=== PATIENT | female | born 1985 | race Caucasian/White ===

== ENCOUNTER 2018-03-23 12:37 | Emergency (ER) | payer SELFPAY ==
[2018-03-23 12:44] VITALS: BP 135/90; PULSE 64; RESP 18; TEMP 36.7; O2SAT 100
--- NOTE | 2018-03-23 12:44 | ED.GENADULT ---
HPI - General Adult <Janneth Bradshaw PA-C - Last Filed: 03/23/18 22:08> General Chief complaint: Medical Clearance Stated complaint: PAIN IN RIGHT WRIST Time Seen by Provider: 03/23/18 12:44 Source: patient Mode of arrival: ambulatory Limitations: no limitations History of Present Illness HPI narrative: This 32-year-old right-handed female comes in requesting a work release note. She states that 8 days ago at work, she was holding a 10 ft piece of scaffolding, which she carries regularly, in her right hand and over her shoulder. She states that the wind blew the plank up, twisting her wrist a little bit and felt somewhat sore after that. She states this has not been bothersome enough to keep her from working, but she did get a wrist splint which she has been wearing that helps with support and comfort. 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 She denies any weakness or paresthesia in the wrist, hand or fingers. She states this has not gotten worse since the initial incident, and not severe enough that she has felt like she needed to take any [id number] pain medication for it. She states that this seems quite mild enough to have been something she could have done at home, so she did not report the injury at the time. She wants to continue working Related Data Previous Rx's Medication Instructions Recorded cyclobenzaprine 10 mg PO Q8HP PRN #20 tab 05/16/17 prednisone 40 mg PO QDAY #6 tab 05/16/17 Allergies Allergy/AdvReac Type Severity Reaction Status Date / Time No Known Allergies Allergy Uncoded 11/03/17 12:31 Review of Systems <Janneth Bradshaw PA-C - Last Filed: 03/23/18 22:08> Review of Systems All systems reviewed & are unremarkable except as noted in HPI and below PFSH <Janneth Bradshaw PA-C - Last Filed: 03/23/18 22:08> Comment: Rare EtOH, no street drugs Exam <Janneth Bradshaw PA-C - Last Filed: 03/23/18 22:08> Narrative Exam Narrative: GENERAL APPEARANCE: Patient sitting comfortably, in no distress. LUNGS: Clear to auscultation bilaterally. HEART: Rate and rhythm regular without murmur, normal S1 and S2, no S3 or S4. MUSCULOSKELETAL: Right upper extremity there is no effusion. Mild tenderness at the right lateral wrist border just proximal to the snuffbox. No tenderness elsewhere over the elbow, forearm, wrist, hand or fingers. She has full range of motion at the elbow, wrist and fingers. Director Of Transportation strength 5/5 NEUROVASCULAR: Right hand is warm and pink with brisk cap refill of the fingers. Sensation is grossly intact Initial Vital Signs Initial Vital Signs: Vital Signs Temperature 98.0 F 03/23/18 12:44 Pulse Rate 64 03/23/18 12:44 Respiratory Rate 18 03/23/18 12:44 Blood Pressure 135/90 H 03/23/18 12:44 Pulse Oximetry 100 03/23/18 12:44 <Freida Vallejo DO - Last Filed: 03/24/18 08:09> Initial Vital Signs Initial Vital Signs: Vital Signs Temperature 98.0 F 03/23/18 12:44 Pulse Rate 64 03/23/18 12:44 Respiratory Rate 18 03/23/18 12:44 Blood Pressure 135/90 H 03/23/18 12:44 Pulse Oximetry 100 03/23/18 12:44 Course <Janneth Bradshaw PA-C - Last Filed: 03/23/18 22:08> Vital Signs - 8 hr 03/23/18 12:44 Temperature 98.0 F Pulse Rate 64 Respiratory Rate 18 Blood Pressure 135/90 H Pulse Oximetry 100 <Freida Vallejo DO - Last Filed: 03/24/18 08:09> Vital Signs - 8 hr 03/23/18 12:44 Temperature 98.0 F Pulse Rate 64 Respiratory Rate 18 Blood Pressure 135/90 H Pulse Oximetry 100 Discharge Plan Departure Patient Disposition: Home Clinical Impression: Muscle strain of right wrist Discharge Date/Time: 03/23/18 13:31 Interventions: ED Discharge Assessment Last Done: 03/23/18 13:30 Instructions: DI for Wrist Sprain Activity Restrictions/Additional Instructions: Please return if you have any acutely worsening symptoms. Please wear the wrist splint when you are at work. You may need this for a month to 6 weeks. Please use [id number] ibuprofen or Aleve as needed for pain. You can resume your usual work duties since you have been doing them without problems, but please follow-up with your PCP in the next week or 2 if not getting better to determine whether further testing or treatment is needed. Prescriptions: No Action cyclobenzaprine 10 MG tablet 10 mg PO Q8HP PRNQty: 20 RF: 0 prednisone 20 MG tablet 40 mg PO QDAY Qty: 6 RF: 0 Referrals: Burak Lama MD [Physician] - <Freida Vallejo DO - Last Filed: 03/24/18 08:09> Cosign ED Attending Lionelature Attestation: I was immediately available in the department for consultation. Documentation has been reviewed. I agree with assessment and plan.
== END 2018-03-23 13:31 | disposition home or self-care (01) ==
PROVIDERS: Emergency Provider Internal Medicine
DX: S66.911A Strain of unspecified muscle, fascia and tendon at wrist and hand level, right hand, initial encounter (principal); T73.3XXA Exhaustion due to excessive exertion, initial encounter; Y99.0 Civilian activity done for income or pay
CPT/HCPCS: 99282

== ENCOUNTER 2019-05-05 08:45 | Emergency (ER) | payer OTHER, SELFPAY ==
--- NOTE | 2019-05-05 08:47 | ED_ITS ---
HPI - Back Pain/Injury General Chief Complaint: Back Pain/Injury Stated Complaint: lower back pain Time Seen by Provider: 05/05/19 08:47 Source: patient and family Mode of arrival: Ambulatory Limitations: no limitations History of Present Illness HPI Narrative: 33-year-old female daily smoker, nondrinker with history of back pain presents with her significant other and a chief complaint of chronic lower back pain. It has been present for many months but the today seems to be radiating down her left leg. Her pain is worse with motion and improves with rest. She admits to some occasional tingling in her toe but denies any weakness. She has no saddle anesthesia. She has no trouble controlling bowel or bladder. She denies any fever chills, and uses no IV drugs and takes no blood thinners. MD Complaint: back pain Onset (ago): month(s) Duration: constant Similar Symptoms Previously: Yes Location: lumbar spine and left lower back Severity: moderate Quality: burning and sharp Radiation: left leg Relieving factors: immobilization Exacerbating factors: movement Associated symptoms: numbness Related Data Previous Rx's Medication Instructions Recorded cyclobenzaprine 10 mg PO Q8HP PRN #20 tab 05/16/17 prednisone 40 mg PO QDAY #6 tab 05/16/17 diazepam [Valium] 5 mg PO BID-QID PRN #10 tab 05/05/19 hydrocodone-acetaminophen 1 tab PO Q4-6H PRN #10 tab 05/05/19 ketorolac 10 mg PO Q6H PRN #14 tab 05/05/19 prednisone 20 mg PO DAILY #5 tab 05/05/19 Allergies Allergy/AdvReac Type Severity Reaction Status Date / Time No Known Allergies Allergy Uncoded 11/03/17 12:31 Review of Systems Constitutional Constitutional: Denies chills, Denies fatigue, Denies fever(s), Denies frequent falls, Denies lethargy and Denies weakness Eyes Eyes: Denies change in vision, Denies eye discharge, Denies irritation and Denies loss of vision ENT Ears, Nose, Mouth, and Throat: Denies change in voice, Denies dizziness, Denies neck pain, Denies sore throat and Denies throat swelling Cardiovascular Cardiovascular: Denies chest pain, Denies irregular heart rhythm, Denies lightheadedness, Denies palpitations, Denies dyspnea, Denies dyspnea on exertion and Denies orthopnea Respiratory Respiratory: Denies cough, Denies dyspnea, Denies dyspnea on exertion and Denies wheezing Gastrointestinal Gastrointestinal: Denies abdominal pain, Denies change in bowel habits, Denies diarrhea, Denies nausea and Denies vomiting Genitourinary Genitourinary: Denies hematuria, Denies flank pain, Denies urinary incontinence and Denies urinary urgency Musculoskeletal Musculoskeletal: Reports back pain, Denies muscle weakness, Denies neck pain, Denies numbness and Denies tingling Integumentary/Breasts Skin/Breast: Denies pruritus, Denies erythema, Denies rash and Denies wounds Neurologic Neurologic: Denies behavioral changes, Denies confusion, Denies dizziness, Denies frequent falls, Denies loss of vision, Denies numbness, Denies tingling and Denies weakness Psychiatric Psychiatric: Denies anxiety, Denies behavioral changes, Denies confusion, Denies depression, Denies homicidal ideation and Denies suicidal ideation Endocrine Endocrine: Denies fatigue, Denies flushing and Denies palpitations Hematologic/Lymphatic Hematologic/Lymphatic: Denies easy bruising Allergic/Immunologic Allergic/Immunologic: Denies urticaria, Denies throat swelling and Denies wheezing Exam Narrative Exam Narrative: GENERAL: [33] year old patient appears stated age. Well- nourished, well-developed patient, in mild distress. HEAD: Atraumatic. Normocephalic. EYES: Pupils equal round and reactive. Extraocular motions intact. No scleral icterus. No injection or drainage. ENT: Nose without bleeding, purulent drainage. Throat without erythema, tonsillar hypertrophy or exudate. Airway patent. NECK: Trachea midline. Non tender CARDIOVASCULAR: Regular rate and rhythm without murmurs, gallops, or rubs. RESPIRATORY: Clear to auscultation. Breath sounds equal bilaterally. No wheezes, rales, or rhonchi. GASTROINTESTINAL: Abdomen soft, non-tender, nondistended. EXTREMITIES: No edema or joint tenderness. BACK: ager tender but free of any obvious external abnormalities. Patient exam notes decreased range of motion and muscle spasm, but no CVA tenderness, or vertebral point tenderness. There are no symptoms of cauda equina such as saddle anesthesia, and decreased reflexes, decreased sensation or strength. NEURO: AOx3. SKIN: No rash or erythema of visible areas Initial Vital Signs Initial Vital Signs: Vital Signs Temperature 98.2 F 10/11/19 08:55 Pulse Rate 77 05/05/19 08:55 Respiratory Rate 18 05/05/19 08:55 Blood Pressure 121/69 05/05/19 08:55 Pulse Oximetry 100 05/05/19 08:55 Course Orders Ordered: Discontinued Medications Diazepam (Valium) 5 mg PO NOW ONE Stop: 05/05/19 09:34 Last Admin: 05/05/19 10:18 Dose: 5 mg Documented by: GUY Ketorolac Tromethamine (Toradol) 60 mg IM NOW ONE Stop: 05/05/19 09:34 Last Admin: 05/05/19 10:17 Dose: 60 mg Documented by: GUY Discharge Plan Departure Patient Disposition: Home Clinical Impression: Chronic back pain Qualifiers: Back pain location: low back pain Back pain laterality: bilateral Sciatica presence: with sciatica Sciatica laterality: sciatica of left side Qualified Code(s): M54.42 - Lumbago with sciatica, left side Discharge Date/Time: 05/05/19 10:57 Instructions: DI for Back Pain With Sciatica Activity Restrictions/Additional Instructions: You have been prescribed narcotic medications. While on these medications you cannot drive or operate heavy machinery. Additionally you cannot sign legal documents or perform any duties such as this. Many people get constipated on narcotic medications so it would be advisable to discuss stool softeners with the pharmacist when you warp picker your prescription. Please understand that we cannot provide further refills of narcotics or controlled substances through the ED and your pain management will need to be through your Primary Care Provider Prescriptions: New hydrocodone-acetaminophen 5-325 mg tablet 1 tab PO Q4-6H PRN (Reason: pain) Qty: 10 RF: 0 prednisone 20 mg tablet 20 mg PO DAILY Qty: 5 RF: 0 ketorolac 10 mg tablet 10 mg PO Q6H PRN (Reason: pain) Qty: 14 RF: 0 diazepam [Valium] 5 mg tablet 5 mg PO BID-QID PRN (Reason: muscle spasm) Qty: 10 RF: 0 No Action cyclobenzaprine 10 MG tablet 10 mg PO Q8HP PRNQty: 20 RF: 0 prednisone 20 MG tablet 40 mg PO QDAY Qty: 6 RF: 0 Referrals: [facility] [Outside]
[2019-05-05 08:55] VITALS: BP 121/69; PULSE 77; RESP 18; TEMP 36.8; O2SAT 100; BMI 28.1
[2019-05-05] MEDS: KETOROLAC 60 MG/2 ML VIAL IM (10:17)
[2019-05-05] MEDS: diazePAM 5 MG TABLET PO (10:18)
[2019-05-05 10:57] VITALS: BP 110/72; PULSE 72; RESP 14
== END 2019-05-05 10:57 | disposition home or self-care (01) ==
PROVIDERS: Emergency Provider Emergency Medicine
DX: M54.42 Lumbago with sciatica, left side (principal)
CPT/HCPCS: 96372; 99282; 99283; J1885

== ENCOUNTER → 2019-05-09 17:00 | Outpatient (CLI) | payer OTHER, SELFPAY ==
--- NOTE | 2019-05-09 | DI.RAD.S_ITS ---
PROCEDURE: XR LUMBAR SPINE 2-3V INDICATIONS: Possible Transitional Segment TECHNIQUE: 3 views of the lumbar spine were acquired. COMPARISON: None. FINDINGS: Bones: 5 [id number] vertebrae are present. There is normal bony alignment. No vertebral body compression fractures. No suspicious bony lesions. There is minimal degenerative disc disease above the L5-S1 level where mild to moderate degenerative disc height reduction and mild facet osteoarthritis could be seen without subluxation. Soft tissues: Overlying bowel gas pattern is normal. No suspicious soft tissue calcifications. IMPRESSION: Degenerative L5-S1 disc disease is mild to moderate and facet osteoarthritis is mild but no compression fractures seen and by this examination otherwise the L5-S1 morphology and articulation appears normal. Dictated by: Amrit Naylor M.D. on 05/09/2019 at 17:24 Approved by: Amrit Naylor M.D. on 05/09/2019 at 17:25
== END ==
PROVIDERS: Visit Provider Chiropractor
DX: M51.37 Other intervertebral disc degeneration, lumbosacral region (principal); M47.817 Spondylosis without myelopathy or radiculopathy, lumbosacral region
CPT/HCPCS: 72100; 72110

== ENCOUNTER 2020-02-18 00:24 | Emergency (ER) | payer OTHER, SELFPAY ==
[2020-02-18 00:25] VITALS: BP 169/98; PULSE 106; RESP 24; TEMP 36.6; O2SAT 99; BMI 32.1
--- NOTE | 2020-02-18 00:42 | ED.WOUNDLAC ---
HPI - Wound/Laceration General Chief Complaint: Wound/Laceration Stated Complaint: cut on right knee Time Seen by Provider: 02/18/20 00:37 Source: patient and family Mode of arrival: Wheelchair Limitations: no limitations History of Present Illness HPI narrative: 34-year-old female here for evaluation of a laceration to her right knee. Patient states that prior to arrival she tripped and fell at home landing on her right knee in cutting it on a piece of metal. Has been able to walk since then. Covered with a bandage prior to arrival. Does not know when her last tetanus shot was. Related Data Previous Rx's Medication Instructions Recorded cyclobenzaprine 10 mg PO Q8HP PRN #20 tab 05/16/17 prednisone 40 mg PO QDAY #6 tab 05/16/17 diazepam [Valium] 5 mg PO BID-QID PRN #10 tab 05/05/19 hydrocodone-acetaminophen 1 tab PO Q4-6H PRN #10 tab 05/05/19 ketorolac 10 mg PO Q6H PRN #14 tab 05/05/19 prednisone 20 mg PO DAILY #5 tab 05/05/19 cephalexin [Keflex] 500 mg PO QID 5 Days #20 cap 02/18/20 Allergies Allergy/AdvReac Type Severity Reaction Status Date / Time No Known Allergies Allergy Uncoded 02/18/20 00:32 Review of Systems Musculoskeletal Comments: Pain into the right knee Integumentary/Breasts Comments: Cut right knee Neurologic Comments: Tingling to the right toes Hematologic/Lymphatic Hematologic/Lymphatic: Denies easy bleeding and Denies easy bruising Allergic/Immunologic Allergic/Immunologic: Denies urticaria Patient History Medical History Hx of sciatica (Resolved) Surgical History History of (Resolved) Social History Smoking Status: Current every day smoker Smoking Status: Current every day smoker alcohol intake frequency: 0-2 drinks per day Alcohol type: beer Substance Use Type: does not use Exam Initial Vital Signs Initial Vital Signs: Vital Signs Temperature 97.8 F 02/18/20 00:25 Pulse Rate 106 H 02/18/20 00:25 Respiratory Rate 24 02/18/20 00:25 Blood Pressure 169/98 H 02/18/20 00:25 Pulse Oximetry 99 02/18/20 00:25 Const General: cooperative and comfortable Skin Other: Patient with a 6 cm incision just proximal to the patella over the anterior portion of the right knee. Has a 1.5 cm smaller incision directly over the patella anterior right knee. No active bleeding. Neuro Sensory Exam: no sensory deficits noted Extrem Other: Patient is able to do a straight leg raise. Can bend her knee however does cause discomfort Procedures Laceration Repair Laceration 1: Site: lower extremity Side (If applicable): right Size (cm): 6 Description: linear Depth: involves muscle layer Local Anesthetic: lidocaine 1% and with epi Amount of anesthesia used (mL): 12 Pre-repair: wound explored, irrigated extensively and deep structures intact Skin layer closed with: nylon Size (cm): 3-0 Number of sutures: 8 Technique: simple, interrupted Subcutaneous layer closed with: chromic gut Size: 3-0 Number of sutures: 4 Technique: simple, interrupted Course Orders Ordered: Discontinued Medications Bacitracin (Bacitracin) 2 applic TOP NOW ONE Stop: 02/18/20 01:28 Last Admin: 02/18/20 01:39 Dose: 2 applic Documented by: [email or web address] Cephalexin HCl (Keflex) 500 mg PO NOW ONE Stop: 02/18/20 01:27 Last Admin: 02/18/20 01:39 Dose: 500 mg Documented by: [email or web address] Diphtheria/Tetanus/Acell Pertussis (Adacel) 0.5 ml IM .ONCE ONE Stop: 02/18/20 00:42 Last Admin: 02/18/20 00:48 Dose: 0.5 ml Documented by: CARMEL Lidocaine/Epinephrine (Xylocaine 1% W/Epi) 1 ml SUBCUT NOW ONE Stop: 02/18/20 00:42 Last Admin: 02/18/20 00:48 Dose: 1 ml Documented by: CARMEL Vital Signs Vital signs: Vital Signs - 8 hr 02/18/20 00:25 Temperature 97.8 F Pulse Rate 106 H Respiratory Rate 24 Blood Pressure 169/98 H Pulse Oximetry 99 MDM - Wound/Laceration MDM Narrative Medical decision making narrative: Her tetanus was updated. The 1.5 cm laceration was superficial in needs no stitches here in the ER. The 6 cm laceration is through the skin and through the deep subcutaneous tissue. I was able to visualize and also palpate the quadriceps tendon. There appears to be no injury to the quadriceps tendon. This was verified through visualization and also palpation. The laceration does not appear to violate the joint capsule. The wound was irrigated extensively. Was closed as described above. Place the patient on antibiotics. First dose given here in the ER. Patient was given care instructions and return precautions. She expressed understanding and agreement. Discharge Plan Departure Patient Disposition: Home Clinical Impression: Laceration Instructions: DI for Laceration Repair Activity Restrictions/Additional Instructions: Use the elastic bandage to remind you to not do excessive bending of your right knee. Take the antibiotics as directed. The stitches do need to be removed in 7-10 days. After 24 hours you can shower like normal. You can use soap and water like normal. Cover the area as needed. Return to the emergency department for any new or worsening symptoms your prescription was electronically transmitted to [facility] Prescriptions: New cephalexin [Keflex] 500 mg capsule 500 mg PO QID 5 Days Qty: 20 RF: 0 No Action cyclobenzaprine 10 MG tablet 10 mg PO Q8HP PRNQty: 20 RF: 0 prednisone 20 MG tablet 40 mg PO QDAY Qty: 6 RF: 0 hydrocodone-acetaminophen 5-325 mg tablet 1 tab PO Q4-6H PRN (Reason: pain) Qty: 10 RF: 0 prednisone 20 mg tablet 20 mg PO DAILY Qty: 5 RF: 0 ketorolac 10 mg tablet 10 mg PO Q6H PRN (Reason: pain) Qty: 14 RF: 0 diazepam [Valium] 5 mg tablet 5 mg PO BID-QID PRN (Reason: muscle spasm) Qty: 10 RF: 0
[2020-02-18] MEDS: TET,DIPH,PERTUSS(ACELL),VAC/PF 0.5 ML SYRINGE IM (00:48)
[2020-02-18] MEDS: LIDOCAINE 1% W/EPI 1 ML SUBCUT (00:48)
[2020-02-18] MEDS: cephALEXin 250 MG CAPSULE 500 MG PO (01:39)
[2020-02-18] MEDS: BACITRACIN OINT 0.9 GM PCKT 2 APPLIC TOP (01:39)
[2020-02-18 02:09] VITALS: BP 126/74; PULSE 81; RESP 16; O2SAT 100
== END 2020-02-18 01:57 | disposition home or self-care (01) ==
PROVIDERS: Emergency Provider Emergency Medicine
DX: S81.011A Laceration without foreign body, right knee, initial encounter (principal); W01.118A Fall on same level from slipping, tripping and stumbling with subsequent striking against other sharp object, initial encounter; Z23 Encounter for immunization
CPT/HCPCS: 13121; 90471; 99283; 99284; 90715

== ENCOUNTER 2020-02-28 15:33 | Emergency (ER) | payer OTHER, MEDICAID, SELFPAY ==
[2020-02-28 15:35] VITALS: BP 131/88; PULSE 63; RESP 16; TEMP 36.4; O2SAT 97
--- NOTE | 2020-02-28 15:42 | ED_ITS ---
HPI - Recheck/Abnormal Lab/Rx <TOMAS Andres - Last Filed: 02/28/20 15:54> General Chief Complaint: Recheck/Abnormal Lab/Rx Stated Complaint: suture removal Time Seen by Provider: 02/28/20 15:35 Source: patient Mode of arrival: Ambulatory Limitations: no limitations History of Present Illness HPI narrative: This is a 34-year-old female, current smoker, who presents to ED in request of suture removal in right knee. 8 Suture had placed done 10 days ago ER with internal observable suture. Patient states she has been ambulating without trouble. Denies symptoms for infection. Related Data Previous Rx's Medication Instructions Recorded cyclobenzaprine 10 mg PO Q8HP PRN #20 tab 05/16/17 prednisone 40 mg PO QDAY #6 tab 05/16/17 diazepam [Valium] 5 mg PO BID-QID PRN #10 tab 05/05/19 hydrocodone-acetaminophen 1 tab PO Q4-6H PRN #10 tab 05/05/19 ketorolac 10 mg PO Q6H PRN #14 tab 05/05/19 prednisone 20 mg PO DAILY #5 tab 05/05/19 Allergies Allergy/AdvReac Type Severity Reaction Status Date / Time No Known Allergies Allergy Uncoded 02/18/20 00:32 Review of Systems <TOMAS Andres - Last Filed: 02/28/20 15:54> Review of Systems Narrative: General: Denies fever, chills, fatigue, malaise, sweats. Musculoskeletal: Denies weakness, joint pain or bony pain. Skin: Denies rash, skin lesions, or other. Patient History <TOMAS Andres - Last Filed: 02/28/20 15:54> Medical History Hx of sciatica (Resolved) Surgical History History of (Resolved) Social History Smoking Status: Current every day smoker Smoking Status: Current every day smoker alcohol intake frequency: 0-2 drinks per day Alcohol type: beer Substance Use Type: does not use Exam <Alex TeeSRUTHIP - Last Filed: 02/28/20 15:54> Narrative Exam Narrative: General appearance: well developed, well nourished, in no acute distress. Head: normocephalic, atraumatic, no scalp lesions, non-tender. ENT: Bilateral auditory canals and tympanic membranes clear. Hearing grossly intact. Nose without bleeding, purulent discharge, septal hematoma or deviation. Turbinate without erythema or swelling. Facial sinuses nontender to palpate. Mucous membrane moist, no mucosal lesion. Throat without erythema, tonsillar hypertrophy or exudate. Uvula in midline, airway patent. Neck/Thyroid: neck supple, full range of motion, no visible masses or meningeal signs. No JVD, non-tender without lymphadenopathy. Skin: Well-healed 6 cm right superior patella laceration with 8 sutures. No overt redness, purulent discharge, warmth appreciated. Heart: no clubbing, no cyanosis, no edema. Lungs: Breathing even and unlabored. No stridor. No accessory muscles used. Able to speak in full sentences. Chest: normal shape and expansion. Abdomen: non-obese, non-distended. Neurologic: alert and oriented. Cognitive exam, [employer] and PNS grossly intact on informal exam. Psych: good eye contact, normal affect. Initial Vital Signs Initial Vital Signs: Vital Signs Temperature 97.6 F 02/28/20 15:35 Pulse Rate 63 02/28/20 15:35 Respiratory Rate 16 02/28/20 15:35 Blood Pressure 131/88 02/28/20 15:35 Pulse Oximetry 97 02/28/20 15:35 Extrem Right lower extremity: knee Details: normal ROM and laceration; no tenderness and no swelling <Freida Vallejo DO - Last Filed: 02/29/20 08:28> Initial Vital Signs Initial Vital Signs: Vital Signs Temperature 97.6 F 02/28/20 15:35 Pulse Rate 63 02/28/20 15:35 Respiratory Rate 16 02/28/20 15:35 Blood Pressure 131/88 02/28/20 15:35 Pulse Oximetry 97 02/28/20 15:35 Scores <Alex TeeSRUTHIP - Last Filed: 02/28/20 15:54> GCS Chintan coma scale eye opening: Spontaneous Chintan coma scale verbal response: Orientated [place] coma scale motor response: Obey commands Chintan coma scale total score: 15 MDM - Recheck/Abnormal Lab/Rx <TOMAS Andres - Last Filed: 02/28/20 15:54> Differential Diagnosis Differential diagnosis: Likely encounter for removal of sutures Medical Records Attestation: I reviewed the patient's medical records. [facility] Narrative Medical decision making narrative: Right knee 8 sutures have been removed and laceration has been reinforced with for Steri-Strips by nursing staff. Physical exam is not appreciating infection. Patient advised to start gentle stretching as she can tolerate and advanced to regain full range of motion. [facility] phone number shared to arrange primary care physician. Return precautions were discussed with patient and patient verbalized understanding and agreement with the treatment plan. Discharge Plan Departure Patient Disposition: Home Clinical Impression: Visit for suture removal Discharge Date/Time: 02/28/20 15:56 Activity Restrictions/Additional Instructions: Your right knee 8 sutures have been removed and laceration has been reinforced with Steri-Strips. Steri-Strips will come off on its own in 7-10 days. Your laceration should be well-healed by this. You should start gentle stretching to regain range of motion and advanced this as you tolerate. What to do: *Take your medications as directed. If you have discomfort you can take [id number] Tylenol and or Motrin as needed. *Follow up with your primary care provider in 2-3 days, call for an appointment as needed. Let them know you were seen in the ED and that we asked you to be seen in follow up. *Return to ED if you have any new, worsening, or concerning symptoms, such as [signs of infection, worsening pain, fever or any acute concerns]. Prescriptions: No Action cyclobenzaprine 10 MG tablet 10 mg PO Q8HP PRNQty: 20 RF: 0 prednisone 20 MG tablet 40 mg PO QDAY Qty: 6 RF: 0 hydrocodone-acetaminophen 5-325 mg tablet 1 tab PO Q4-6H PRN (Reason: pain) Qty: 10 RF: 0 prednisone 20 mg tablet 20 mg PO DAILY Qty: 5 RF: 0 ketorolac 10 mg tablet 10 mg PO Q6H PRN (Reason: pain) Qty: 14 RF: 0 diazepam [Valium] 5 mg tablet 5 mg PO BID-QID PRN (Reason: muscle spasm) Qty: 10 RF: 0 Referrals: [facility] [Outside] <Freida Vallejo, DO - Last Filed: 02/29/20 08:28> Cosign ED Attending Luciana Attestation: I was immediately available in the department for consultation. Documentation has been reviewed. I agree with assessment and plan.
== END 2020-02-28 15:56 | disposition home or self-care (01) ==
PROVIDERS: Emergency Provider Nurse Practitioner Family
DX: Z48.02 Encounter for removal of sutures (principal)
CPT/HCPCS: 99281

== ENCOUNTER 2020-04-09 10:30 | Emergency (ER) | payer OTHER, MEDICAID, SELFPAY ==
[2020-04-09 10:40] VITALS: BP 150/79; PULSE 68; RESP 18; TEMP 36.7; O2SAT 99
--- NOTE | 2020-04-09 11:01 | ED_ITS ---
HPI - Recheck/Abnormal Lab/Rx General Chief Complaint: Recheck/Abnormal Lab/Rx Stated Complaint: need an inhaler Time Seen by Provider: 04/09/20 11:01 Source: patient Mode of arrival: Ambulatory Limitations: no limitations History of Present Illness HPI narrative: 34-year-old woman with mild reactive airway disease and no primary care physician presents complaining of increasing wheezing while she is working outside. Currently significant amounts of smoke in the air with air rating is hazardous. 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 She does have respirators available to her and I have strongly recommended that she use them. In the meantime she would like help with an inhaler. She has successfully used albuterol in the past. She notes that when she is inside she is doing well without side begins wheezing and coughing significantly. She denies any fevers, chills, dyspnea, chest pain, abdominal pain, urinary symptoms Related Data Previous Rx's Medication Instructions Recorded cyclobenzaprine 10 mg PO Q8HP PRN #20 tab 05/16/17 prednisone 40 mg PO QDAY #6 tab 05/16/17 diazepam [Valium] 5 mg PO BID-QID PRN #10 tab 05/05/19 hydrocodone-acetaminophen 1 tab PO Q4-6H PRN #10 tab 05/05/19 ketorolac 10 mg PO Q6H PRN #14 tab 05/05/19 prednisone 20 mg PO DAILY #5 tab 05/05/19 albuterol sulfate 2 puff INHALATION Q6H PRN #6.7 gram 04/09/20 fluticasone propionate [Flovent 1 puff INHALATION BID #12 gram 04/09/20 HFA] Allergies Allergy/AdvReac Type Severity Reaction Status Date / Time No Known Drug Allergies Allergy Verified 04/09/20 10:48 Review of Systems Review of Systems Narrative: Remainder of review of systems including constitutional, ENT, cardiovascular, respiratory, GI, , musculoskeletal, skin, neurologic and psychiatric systems reviewed and are unremarkable except as noted in HPI. Patient History Medical History Hx of sciatica (Resolved) RAD (reactive airway disease) (Acute) Surgical History History of (Resolved) Social History Smoking Status: Current every day smoker Smoking Status: Current every day smoker alcohol intake frequency: 0-2 drinks per day Alcohol type: beer Substance Use Type: does not use Exam Narrative Exam Narrative: General: Alert appropriate in no acute distress Respiratory: Able to speak in full sentences, no obvious respiratory distress. No wheezing in full and symmetrical air movement appreciated Cardiac: Regular rate and rhythm, no murmurs Skin: No obvious rashes, warm and dry Neurologic: Grossly intact no obvious asymmetries or abnormalities Psych, appropriate insight and affect, cooperative Initial Vital Signs Initial Vital Signs: Vital Signs Temperature 98.1 F 04/09/20 10:40 Pulse Rate 68 04/09/20 10:40 Respiratory Rate 18 04/09/20 10:40 Blood Pressure 150/79 H 04/09/20 10:40 Pulse Oximetry 99 04/09/20 10:40 Course Vital Signs Vital signs: Vital Signs - 8 hr 04/09/20 10:40 Temperature 98.1 F Pulse Rate 68 Respiratory Rate 18 Blood Pressure 150/79 H Pulse Oximetry 99 MDM - Recheck/Abnormal Lab/Rx MDM Narrative Medical decision making narrative: 34-year-old woman with increasing wheezing with prolonged exposure to has wrist level is a smoked debris in the air. Steroid inhaler, albuterol inhaler and strongly recommended respirator while working outside to prevent needing either the inhalers in the 1st place. No signs of infection at this time. She is safe for home discharge Discharge Plan Departure Patient Disposition: Home Clinical Impression: RAD (reactive airway disease) Qualifiers: Asthma severity: mild Asthma persistence: intermittent Asthma complication type: with acute exacerbation Qualified Code(s): J45.21 - Mild intermittent asthma with (acute) exacerbation Instructions: How to Use Metered-Dose Inhalers Activity Restrictions/Additional Instructions: Thank you for coming in today With the current smoke in the air and air qualities listed as hazardous, being outside doing physical labor for 10 hours a day is certainly exacerbating your mild reactive airway disease. I would strongly recommend using a respirator outside In the meantime, using a steroid inhaler, Flovent 1 puff in the morning and 1 puff at night can help keep the chronic inflammation down while the smoke a so bad. You can use 2 puffs of your albuterol inhaler every 4 hours as needed for tightness or cough. 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 I wish you well Prescriptions: New Flovent HFA 110 mcg/actuation HFA aerosol inhaler 1 puff INHALATION BID Qty: 12 RF: 0 albuterol sulfate 90 mcg/actuation HFA aerosol inhaler 2 puff INHALATION Q6H PRN (Reason: shortness of breath or wheezing) Qty: 6.7 RF: 2 No Action cyclobenzaprine 10 MG tablet 10 mg PO Q8HP PRNQty: 20 RF: 0 prednisone 20 MG tablet 40 mg PO QDAY Qty: 6 RF: 0 hydrocodone-acetaminophen 5-325 mg tablet 1 tab PO Q4-6H PRN (Reason: pain) Qty: 10 RF: 0 prednisone 20 mg tablet 20 mg PO DAILY Qty: 5 RF: 0 ketorolac 10 mg tablet 10 mg PO Q6H PRN (Reason: pain) Qty: 14 RF: 0 diazepam [Valium] 5 mg tablet 5 mg PO BID-QID PRN (Reason: muscle spasm) Qty: 10 RF: 0
== END 2020-04-09 11:32 | disposition home or self-care (01) ==
PROVIDERS: Emergency Provider Emergency Medicine
DX: J45.21 Mild intermittent asthma with (acute) exacerbation (principal)
CPT/HCPCS: 99281

== ENCOUNTER 2020-04-09 18:50 | Emergency (ER) | payer OTHER, MEDICAID, SELFPAY ==
[2020-04-09 18:52] VITALS: BP 151/91; PULSE 91; RESP 18; TEMP 36.3; O2SAT 98
--- NOTE | 2020-04-09 19:27 | ED.WOUNDLAC ---
HPI - Wound/Laceration General Chief Complaint: Wound/Laceration Stated Complaint: INJURY LACERATION PRIVATE AREA ? Time Seen by Provider: 04/09/20 19:01 Source: patient Mode of arrival: Ambulatory Limitations: no limitations History of Present Illness HPI narrative: 34-year-old female here for evaluation of injuries that she sustained just prior to arrival. She did arrive by private vehicle. Patient states that she was wearing a pair of sandals. She was climbing over a fence trying to get back to the trailer where she is staying when she stated that her sandal got caught in the fence and she fell. She stated that the fence broke as well. When she fell she landed on her buttocks where there was a piece of metal rebar sticking out from the ground and the rebar puncture her bottom right near her rectum. Had bleeding. This did go through her clothes. She covered with a bandage prior to arrival. She denies any other injuries from the event. States that her last tetanus shot was within the past year. Related Data Previous Rx's Medication Instructions Recorded albuterol sulfate 2 puff INHALATION Q6H PRN #6.7 gram 04/09/20 amoxicillin-pot clavulanate 1 tab PO BID 7 Days #14 tab 04/09/20 [Augmentin] fluticasone propionate [Flovent 1 puff INHALATION BID #12 gram 04/09/20 HFA] hydrocodone-acetaminophen [[place]] 1 tab PO Q4-6H PRN #10 tab 04/09/20 Allergies Allergy/AdvReac Type Severity Reaction Status Date / Time No Known Drug Allergies Allergy Verified 04/09/20 10:48 Review of Systems Constitutional Constitutional: Denies fever(s) Cardiovascular Cardiovascular: Denies chest pain and Denies dyspnea Respiratory Respiratory: Denies dyspnea Gastrointestinal Gastrointestinal: Denies abdominal pain, Denies nausea and Denies vomiting Comments: Cut near rectum Genitourinary Genitourinary: Denies dysuria Genitourinary: Denies dysuria and Denies vaginal discharge Musculoskeletal Musculoskeletal: Denies arthralgias and Denies myalgias Integumentary/Breasts Comments: Cut near rectum Neurologic Neurologic: Denies behavioral changes Psychiatric Psychiatric: Denies anxiety and Denies behavioral changes Hematologic/Lymphatic Hematologic/Lymphatic: Denies easy bleeding and Denies easy bruising Allergic/Immunologic Allergic/Immunologic: Denies urticaria Patient History Medical History Hx of sciatica (Resolved) RAD (reactive airway disease) (Acute) Surgical History History of (Resolved) Social History Smoking Status: Current every day smoker Smoking Status: Current every day smoker alcohol intake frequency: 0-2 drinks per day Alcohol type: beer Substance Use Type: does not use Exam Initial Vital Signs Initial Vital Signs: Vital Signs Temperature 97.3 F L 04/09/20 18:52 Pulse Rate 91 H 04/09/20 18:52 Respiratory Rate 18 04/09/20 18:52 Blood Pressure 151/91 H 04/09/20 18:52 Pulse Oximetry 98 04/09/20 18:52 Const General: cooperative and comfortable Limitations: mental status not altered HENMT Head: normal to inspection and normocephalic Resp Effort & Inspection: normal respiratory effort Cardio Rate: regular rate GI Inspection: non-distended Palpation: soft Other: The laceration is just posterior to the anus. The sphincter muscle appears to be intact. On rectal exam the rectum appears to be intact. No fecal material coming from the wound. External Female Exam: normal external appearance Skin Other: There is a puncture/?U? shaped laceration just posterior to the anus. There is oozing from the area. There is an irregular margins. It is for the most part midline however could be very slightly to the right more than the left. Neuro General: patient alert and patient awake Cognition: normal cognition Speech: speech normal Extrem General: normal to inspection and capillary refill normal Psych Appearance: grossly normal and well kempt Procedures Laceration Repair Laceration 1: Site: other (Rectum) Size (cm): 5 Description: irregular Depth: involves muscle layer Local Anesthetic: lidocaine 1% and with bicarb Amount of anesthesia used (mL): 10 Pre-repair: wound explored, irrigated extensively and deep structures intact Skin layer closed with: nylon Size (cm): 3-0 Number of sutures: 4 Technique: simple, interrupted Course Orders Ordered: ED Orders 04/09/20 19:32 Consult to General Surgery Stat 04/09/20 19:35 Basic Metabolic Panel Stat Complete Blood Count AUTO DIFF Stat Test Serum,Qual Stat 04/09/20 19:38 CT abdomen pelvis w con Stat Discontinued Medications Hydrocodone Bitart/Acetaminophen (Vicodin 5/325 Prepack) 1 bottle MISC SEEINSTR ONE Stop: 04/09/20 22:33 Last Admin: 04/09/20 22:39 Dose: 1 bottle Documented by: ADELFO Sodium Chloride (Normal Saline 0.9%) 1,000 mls @ 1,000 mls/hr IV BOLUS ONE Stop: 04/09/20 20:26 Last Infusion: 04/09/20 22:40 Dose: 0 mls/hr Documented by: Admin: 04/09/20 19:46 Dose: 1,000 mls/hr Documented by: GUY Ceftriaxone Sodium/Dextrose (Rocephin) 1 gm in 50 mls @ 100 mls/hr IV NOW ONE Stop: 04/09/20 19:57 Last Infusion: 04/09/20 20:38 Dose: 0 mls/hr Documented by: Admin: 04/09/20 19:46 Dose: 100 mls/hr Documented by: GUY Lidocaine/Sodium Bicarbonate (Buffered Lidocaine 10 Ml Syr) 10 ml INJ NOW ONE Stop: 04/09/20 21:17 Last Admin: 04/09/20 21:37 Dose: 10 ml Documented by: ADELFO Morphine Sulfate (Morphine) 4 mg IV NOW ONE Stop: 04/09/20 19:32 Last Admin: 04/09/20 19:46 Dose: 4 mg Documented by: GUY Vital Signs Vital signs: Vital Signs - 8 hr 04/09/20 18:52 04/09/20 21:24 04/09/20 21:30 Temperature 97.3 F L Pulse Rate 91 H 57 L 58 L Respiratory Rate 18 Blood Pressure 151/91 H 113/64 110/61 Pulse Oximetry 98 98 98 04/09/20 22:00 Temperature Pulse Rate 60 Respiratory Rate Blood Pressure 118/59 L Pulse Oximetry 99 MDM - Wound/Laceration Lab Data Attestation: I reviewed the patient's lab results. Result diagrams: 04/09/20 19:35 04/09/20 19:35 Labs: Lab Results 04/09/20 04/09/20 04/09/20 Range/Units 19:35 19:35 19:35 WBC 9.6 (4.5-11.0) X10^3/uL RBC 4.12 (4.0-5.2) X10^6/uL Hgb 11.8 L (12.0-16.0) g/dL Hct 35.2 L (36-46) % MCV 85.5 (80-100) fL MCH 28.7 (26-34) PG MCHC 33.5 (30-36) % RDW 15.0 H (11.6-14.8) % Plt Count 308 (150-400) X10^3/uL Neut % (Auto) 61.9 (50-75) % Lymph % (Auto) 27.8 (25-40) % [place] % (Auto) 8.0 (3-14) % Eos % (Auto) 1.4 L (2-4) % Baso % (Auto) 0.9 (0-2) % Neut # (Auto) 6000 (7045-2925) /uL Lymph # (Auto) 2700 (1663-8723) /uL [place] # (Auto) 800 (0-900) /uL Eos # (Auto) 100 (0-450) /uL Baso # (Auto) 100 (0-100) /uL Sodium 137 (137-145) mmol/L Potassium 3.8 (3.4-5.1) mmol/L Chloride 103 (98-107) mmol/L Carbon Dioxide 27 (22-32) mmol/L BUN 16 (7-17) mg/dL Creatinine 0.82 (0.52-1.04) mg/dL Estimated GFR > 60.0 (>60) mL/min BUN/Creatinine Ratio 19.5 (6-22) Glucose 98 (70-100) mg/dL Calcium 9.1 (8.4-10.2) mg/dL Serum , Qual Negative (Negative) Imaging Data CT scan - abdomen/pelvis: Radiologist's Impression: [address] [address] [address] Scan Report Signed Patient: Lori Yost#: [id number] : 1985Acct:[id number] Age/Sex: 34 / FDate of Service: 04/09/20 Loc: ED Accession Number: [id number] Procedure: CT abdomen pelvis w con Ordering Provider: Patrick Rodas D.O. PROCEDURE: CT ABDOMEN PELVIS W CON INDICATIONS: Perirectal injury TECHNIQUE: After the administration of intravenous contrast, 5 mm thick sections acquired from the diaphragm to the symphysis. 5 mm coronal and sagittal reformats were acquired. For radiation dose reduction, the following was used: automated exposure control, adjustment of mA and/or kV according to patient size. COMPARISON: None. FINDINGS: Image quality: Excellent. ABDOMEN: Lung bases: Lung bases are clear. Heart size is normal. Solid organs: Liver is normal in size and enhancement. Gallbladder is normal. Biliary system is non dilated. Pancreas enhances normally. Spleen is normal in size and enhancement. No adrenal nodules. Kidneys demonstrate normal size and enhancement, without hydronephrosis. Peritoneum and bowel: Bowel loops demonstrate normal wall thickness and caliber. There is mild segmental bowel wall thickening in sigmoid colon. Appendix is normal. No free fluid or air. There is a rectal tube. There is a 0.6 x 1.4 cm linear density obliquely posterior to the rectum toward right of the midline, suspicious a small soft tissue laceration. No subcutaneous gas or contrast. No contrast extravasation outside of the rectum. No contrast in the vagina (which would indicate rectovaginal fistula). Nodes and vessels: No retroperitoneal or mesenteric adenopathy by size criteria. Aorta and inferior vena cava are normal in size. Miscellaneous: No ventral hernias. PELVIS: Genitourinary: Uterus and ovaries are normal. Bladder wall thickness is normal. Miscellaneous: No inguinal hernias or adenopathy. Bones: No suspicious bony lesions. No vertebral body compression fractures. There is mild to moderate degenerative disease at L3-L4, L4-L5 and L5-S1. IMPRESSION: 1. A 0.6 x 1.4 cm linear density obliquely posterior to the rectum toward right of the midline, suspicious a small soft tissue laceration. No subcutaneous gas or contrast. No contrast extravasation outside of the rectum or into the vagina (rectovaginal fistula). 2. Mild segmental thickening of sigmoid colon suggesting mild colitis. Differential diagnosis include infectious colitis versus inflammatory bowel disease. Recommend clinical correlation. The result was discussed with Dr. Rodas. Dictated by: Brendan Leiva M.D. on 04/09/2020 at 20:56 Approved by: Brendan Leiva M.D. on 04/09/2020 at 21:07 MDM Narrative Medical decision making narrative: Patient is up-to-date on tetanus. Dr. Scales with general surgery did evaluate the patient in the emergency department and she agreed that the sphincter muscle of the anus and the rectum does appear to be intact on exam. Patient did have a CT scan with rectal contrast performed which again confirmed that there was no bowel involvement. The skin laceration was extremely close to the sphincter muscle. It was a fairly complex laceration to close given the irregularity of the wounds and also the location. It was closed loosely with 4 stitches as described above. Patient was given antibiotics here in the ER. Will send home with antibiotics. She was given instructions with regard to keeping the area clean. We discussed showering off and using Sitz baths especially after having bowel movements. The wound was irrigated extensively prior to the loose closure however there is concern about potential infection given the location and the nature of the wound. Patient was given return precautions with regard to this. She was also given phone numbers to contact the general surgery department follow-up. She expressed understanding and agreement. Discharge Plan Departure Patient Disposition: Home Clinical Impression: Laceration Discharge Date/Time: 04/09/20 22:39 Instructions: DI for Laceration Repair Activity Restrictions/Additional Instructions: We placed 4 stitches in the area that was cut. You can shower like normal. Recommend that whenever you have a bowel movement you wash the area with soap and water. Just pat the area like me. Dr. Scales who was the general surgeon who saw you in the emergency department would like to follow you up in the office. You can contact them at [phone]. Also contact your primary provider for follow-up. Return to the emergency department for any new or worsening symptoms Prescriptions: New hydrocodone-acetaminophen [[place]] 5-325 mg tablet 1 tab PO Q4-6H PRN (Reason: pain) Qty: 10 RF: 0 amoxicillin-pot clavulanate [Augmentin] 875-125 mg tablet 1 tab PO BID 7 Days Qty: 14 RF: 0 No Action Flovent HFA 110 mcg/actuation HFA aerosol inhaler 1 puff INHALATION BID Qty: 12 RF: 0 albuterol sulfate 90 mcg/actuation HFA aerosol inhaler 2 puff INHALATION Q6H PRN (Reason: shortness of breath or wheezing) Qty: 6.7 RF: 2 Stand Alone Forms: Work Release Note
--- NOTE | 2020-04-09 19:38 | DI.CT.S_ITS ---
PROCEDURE: CT ABDOMEN PELVIS W CON INDICATIONS: Perirectal injury TECHNIQUE: After the administration of intravenous contrast, 5 mm thick sections acquired from the diaphragm to the symphysis. 5 mm coronal and sagittal reformats were acquired. For radiation dose reduction, the following was used: automated exposure control, adjustment of mA and/or kV according to patient size. COMPARISON: None. FINDINGS: Image quality: Excellent. ABDOMEN: Lung bases: Lung bases are clear. Heart size is normal. Solid organs: Liver is normal in size and enhancement. Gallbladder is normal. Biliary system is non dilated. Pancreas enhances normally. Spleen is normal in size and enhancement. No adrenal nodules. Kidneys demonstrate normal size and enhancement, without hydronephrosis. Peritoneum and bowel: Bowel loops demonstrate normal wall thickness and caliber. There is mild segmental bowel wall thickening in sigmoid colon. Appendix is normal. No free fluid or air. There is a rectal tube. There is a 0.6 x 1.4 cm linear density obliquely posterior to the rectum toward right of the midline, suspicious a small soft tissue laceration. No subcutaneous gas or contrast. No contrast extravasation outside of the rectum. No contrast in the vagina (which would indicate rectovaginal fistula). Nodes and vessels: No retroperitoneal or mesenteric adenopathy by size criteria. Aorta and inferior vena cava are normal in size. Miscellaneous: No ventral hernias. PELVIS: Genitourinary: Uterus and ovaries are normal. Bladder wall thickness is normal. Miscellaneous: No inguinal hernias or adenopathy. Bones: No suspicious bony lesions. No vertebral body compression fractures. There is mild to moderate degenerative disease at L3-L4, L4-L5 and L5-S1. IMPRESSION: 1. A 0.6 x 1.4 cm linear density obliquely posterior to the rectum toward right of the midline, suspicious a small soft tissue laceration. No subcutaneous gas or contrast. No contrast extravasation outside of the rectum or into the vagina (rectovaginal fistula). 2. Mild segmental thickening of sigmoid colon suggesting mild colitis. Differential diagnosis include infectious colitis versus inflammatory bowel disease. Recommend clinical correlation. The result was discussed with Dr. Rodas. Dictated by: Brendan Leiva M.D. on 04/09/2020 at 20:56 Approved by: Brendan Leiva M.D. on 04/09/2020 at 21:07
[2020-04-09 19:41] LABS: Add Manual Diff / Slide Review NO; Basophils Absolute Auto 100 /uL (0-100); Basophils Percent Auto 0.9 % (0-2); Eosinophils Absolute Auto 100 /uL (0-450); Eosinophils Percent Auto 1.4 % (2-4); Hematocrit 35.2 % (36-46); Hemoglobin 11.8 g/dL (12.0-16.0); Lymphocytes Absolute Auto 2700 /uL (1100-4500); Lymphocytes Percent Auto 27.8 % (25-40); Mean Corpuscular HGB Conc 33.5 % (30-36); Mean Corpuscular Hemoglobin 28.7 PG (26-34); Mean Corpuscular Volume 85.5 fL (80-100); Monocytes Absolute Auto 800 /uL (0-900); Neutrophils Absolute Auto 6000 /uL (1500-7000); Neutrophils Percent Auto 61.9 % (50-75); Platelet Count 308 X10^3/uL (150-400); Red Blood Cell Count 4.12 X10^6/uL (4.0-5.2); White Blood Cell Count 9.6 X10^3/uL (4.5-11.0)
[2020-04-09] MEDS: CEFTRIAXONE 1 GM/50 ML FROZ.PIGGY IV (19:46)
[2020-04-09] MEDS: SODIUM CHLORIDE 0.9% 1,000 ML 1000 ML IV (19:46)
[2020-04-09] MEDS: MORPHINE 4 MG/ML INJ IV (19:46)
--- NOTE | 2020-04-09 19:55 | PC.NURSE ---
+ sphincter tone per Dr. Rodas
[2020-04-09 20:01] LABS: BUN Creatinine Ratio 19.5 (6-22); Blood Urea Nitrogen 16 mg/dL (7-17); Calcium 9.1 mg/dL (8.4-10.2); Carbon Dioxide 27 mmol/L (22-32); Chloride 103 mmol/L (98-107); Estimated Glomerular Filt Rate > 60.0 mL/min (>60); Glucose 98 mg/dL (70-100); HEMOLYSIS < 15 (0-50); Potassium 3.8 mmol/L (3.4-5.1); Sodium 137 mmol/L (137-145)
[2020-04-09 20:06] LABS: Pregnancy Test Serum,Qual Negative (Negative)
[2020-04-09 21:24] VITALS: BP 113/64; PULSE 57; O2SAT 98
[2020-04-09 21:30] VITALS: BP 110/61; PULSE 58; O2SAT 98
[2020-04-09] MEDS: LIDO 1%/SOD BICARB 8.4% (10ML) 10 ML SYRINGE INJ (21:37)
[2020-04-09 22:00] VITALS: BP 118/59; PULSE 60; O2SAT 99
--- NOTE | 2020-04-09 22:15 | P.CONS_ITS ---
History of Present Illness Consult details Date Patient Seen: 04/09/20 Time Patient Seen: 20:16 Chief complaint: INJURY LACERATION PRIVATE AREA ? Reason for consult: perianal laceration Requesting provider: Patrick Rodas Narrative: This is a 34 yo woman with history of obesity, and smoking, who fell from a fence earlier this evening and landed on an exposed piece of rebar. The exposed rebar lacerated her skin on the right buttock posterior lateral to the anal verge. ROS: Thirteen system review is otherwise negative other than as mentioned below and in HPI. PE: GENERAL: Alert, cooperative, uncomfortable. Appears stated age. Answers questions promptly and appropriately. Vital signs noted. HENT: Normocephalic, atraumatic. Hearing intact. Oral mucosa is pink and moist. EYES: Conjunctiva pink, sclera white, no periorbital swelling. CARDIOVASCULAR: Regular rate. No pedal edema. RESPIRATORY: Non-tachypneic, breathing comfortably on room air. GASTROINTESTINAL: Abdomen soft and non-distended Perianal: 1.5cm complex laceration in the posterior lateral skin of the right buttock about 1cm from the anal verge BENITO: normal rectal tone; no palpable defect; no palpable communication between the skin wound and the anal canal MUSCULOSKELETAL: Equal tone and mass bilaterally. SKIN: Warm, dry, soft, appropriate color for ethnicity. No other lesions, rashes, or wounds. NEURO: Alert and Oriented X 3. No gross sensory deficits, or cognitive issues. PSYCH: Appropriate mood and affect, normal intellect Meds Home Medications and Allergies Home Medications Medication Instructions Recorded Confirmed Type albuterol sulfate 2 puff INHALATION Q6H PRN #6.7 gram 04/09/20 04/09/20 Rx fluticasone propionate [Flovent 1 puff INHALATION BID #12 gram 04/09/20 04/09/20 Rx HFA] Allergies Allergy/AdvReac Type Severity Reaction Status Date / Time No Known Drug Allergies Allergy Verified 04/09/20 10:48 Exam Vital Signs (past 8 hours): - 04/09/20 18:52 Temperature 97.3 F L Pulse Rate 91 H Respiratory Rate 18 Blood Pressure 151/91 H Pulse Oximetry 98 Oxygen Delivery Method Room Air Objective Imaging CT scan - abdomen: Radiologist's impression: [address] [address] [address] Scan Report Signed Patient: Lori Yost#: [id number] : 1985Acct:[id number] Age/Sex: 34 / FDate of Service: 04/09/20 Loc: ED Accession Number: [id number] Procedure: CT abdomen pelvis w con Ordering Provider: Patrick Rodas D.O. PROCEDURE: CT ABDOMEN PELVIS W CON INDICATIONS: Perirectal injury TECHNIQUE: After the administration of intravenous contrast, 5 mm thick sections acquired from the diaphragm to the symphysis. 5 mm coronal and sagittal reformats were acquired. For radiation dose reduction, the following was used: automated exposure control, adjustment of mA and/or kV according to patient size. COMPARISON: None. FINDINGS: Image quality: Excellent. ABDOMEN: Lung bases: Lung bases are clear. Heart size is normal. Solid organs: Liver is normal in size and enhancement. Gallbladder is normal. Biliary system is non dilated. Pancreas enhances normally. Spleen is normal in size and enhancement. No adrenal nodules. Kidneys demonstrate normal size and enhancement, without hydronephrosis. Peritoneum and bowel: Bowel loops demonstrate normal wall thickness and caliber. There is mild segmental bowel wall thickening in sigmoid colon. Appendix is normal. No free fluid or air. There is a rectal tube. There is a 0.6 x 1.4 cm linear density obliquely posterior to the rectum toward right of the midline, suspicious a small soft tissue laceration. No subcutaneous gas or contrast. No contrast extravasation outside of the rectum. No contrast in the vagina (which would indicate rectovaginal fistula). Nodes and vessels: No retroperitoneal or mesenteric adenopathy by size criteria. Aorta and inferior vena cava are normal in size. Miscellaneous: No ventral hernias. PELVIS: Genitourinary: Uterus and ovaries are normal. Bladder wall thickness is normal. Miscellaneous: No inguinal hernias or adenopathy. Bones: No suspicious bony lesions. No vertebral body compression fractures. There is mild to moderate degenerative disease at L3-L4, L4-L5 and L5-S1. IMPRESSION: 1. A 0.6 x 1.4 cm linear density obliquely posterior to the rectum toward right of the midline, suspicious a small soft tissue laceration. No subcutaneous gas or contrast. No contrast extravasation outside of the rectum or into the vagina (rectovaginal fistula). 2. Mild segmental thickening of sigmoid colon suggesting mild colitis. Differential diagnosis include infectious colitis versus inflammatory bowel disease. Recommend clinical correlation. The result was discussed with Dr. Rodas. Dictated by: Brendan Leiva M.D. on 04/09/2020 at 20:56 Approved by: Brendan Leiva M.D. on 04/09/2020 at 21:07 Labs Result Diagrams: 04/09/20 19:35 04/09/20 19:35 Labs: Laboratory Results - last 24 hr 04/09/20 04/09/20 04/09/20 19:35 19:35 19:35 WBC 9.6 RBC 4.12 Hgb 11.8 L Hct 35.2 L MCV 85.5 MCH 28.7 MCHC 33.5 RDW 15.0 H Plt Count 308 Neut % (Auto) 61.9 Lymph % (Auto) 27.8 [place] % (Auto) 8.0 Eos % (Auto) 1.4 L Baso % (Auto) 0.9 Neut # (Auto) 6000 Lymph # (Auto) 2700 [place] # (Auto) 800 Eos # (Auto) 100 Baso # (Auto) 100 Sodium 137 Potassium 3.8 Chloride 103 Carbon Dioxide 27 BUN 16 Creatinine 0.82 Estimated GFR > 60.0 BUN/Creatinine Ratio 19.5 Glucose 98 Calcium 9.1 Serum , Qual Negative Assessment & Plan Assessment and plan (1) Laceration of right buttock with complication: Status: Acute (2) Obesity (BMI 30-39.9): Status: Acute (3) Smoking: Status: Acute Assessment & Plan narrative: This is a 34 yo woman with history of obesity and smoking who fell on some rebar and tore the skin of the right buttock adjacent to the anal verge. Her anal canal and rectal opening area intact. The CT scan was read as sigmoid colon thickening as well. Recommendations: Close skin loosely with nylon suture and cover with dry nonstick dressing Rinse the area twice daily and after BM's using shower handle or sitz bath Keep covered with a dry non-stick dressing; avoid soilage of wound with stool Wash gently with soap and water Do not clean with alcohol, peroxide, or other strong cleansers Follow up with Dr. Scales for wound check, suture removal, and discussion of sigmoid colon thickening, possible need for colonoscopy
[2020-04-09] MEDS: HYDROCODONE/ACET 5/325 PREPACK 1 BOTTLE MISC (22:39)
== END 2020-04-09 22:39 | disposition home or self-care (01) ==
PROVIDERS: Emergency Provider Emergency Medicine
DX: S36.63XA Laceration of rectum, initial encounter (principal); W26.8XXA Contact with other sharp object(s), not elsewhere classified, initial encounter
CPT/HCPCS: 36415; 74177; 80048; 84703; 85025; 96361; 96365; 96375; 99281; 99284; J2270

== ENCOUNTER → 2020-04-19 10:49 | Outpatient (CLI) | payer OTHER, MEDICAID, SELFPAY ==
[2020-04-19 11:54] LABS: Add Manual Diff / Slide Review NO; Basophils Absolute Auto 0 /uL (0-100); Basophils Percent Auto 0.3 % (0-2); Eosinophils Absolute Auto 200 /uL (0-450); Hematocrit 38.3 % (36-46); Lymphocytes Absolute Auto 2600 /uL (1100-4500); Lymphocytes Percent Auto 30.5 % (25-40); Mean Corpuscular HGB Conc 33.9 % (30-36); Mean Corpuscular Volume 85.8 fL (80-100); Monocytes Absolute Auto 900 /uL (0-900); Monocytes Percent Auto 10.4 % (3-14); Neutrophils Absolute Auto 4700 /uL (1500-7000); Neutrophils Percent Auto 55.8 % (50-75); Platelet Count 327 X10^3/uL (150-400); Red Blood Cell Count 4.46 X10^6/uL (4.0-5.2); Red Cell Distribution Width 14.5 % (11.6-14.8); White Blood Cell Count 8.4 X10^3/uL (4.5-11.0)
[2020-04-19 12:23] LABS: Alanine Aminotransferase 26 IU/L (<35); Albumin 4.4 g/dL (3.5-5.0); Albumin Globulin Ratio 1.4 (1.0-2.8); Alkaline Phosphatase 98 U/L (38-126); Aspartate Aminotransferase 26 IU/L (14-36); BUN Creatinine Ratio 15.9 (6-22); Bilirubin Total 0.3 mg/dL (0.2-1.3); Blood Urea Nitrogen 13 mg/dL (7-17); Calcium 9.6 mg/dL (8.4-10.2); Carbon Dioxide 27 mmol/L (22-32); Chloride 104 mmol/L (98-107); Cholesterol 182 mg/dL (140-199); Estimated Glomerular Filt Rate > 60.0 mL/min (>60); Globulin 3.2 g/dL (1.7-4.1); Glucose 83 mg/dL (70-100); HDL Cholesterol 40 mg/dL (40-60); HEMOLYSIS < 15 (0-50); LDL Cholesterol Calculated 104 mg/dL (<100); Potassium 4.7 mmol/L (3.4-5.1); Sodium 139 mmol/L (137-145); Total Protein 7.6 g/dL (6.3-8.2); Triglycerides 188 mg/dL (35-150)
[2020-04-19 12:56] LABS: Ferritin 51 ng/mL (6-137)
[2020-04-19 17:54] LABS: Total Iron Binding Capacity 400 ug/dL (265-497)
== END ==
PROVIDERS: PCP Registered Nurse; Referring Provider Registered Nurse; Visit Provider Registered Nurse
DX: Z00.00 Encounter for general adult medical examination without abnormal findings (principal); D50.9 Iron deficiency anemia, unspecified; D64.9 Anemia, unspecified; Z82.49 Family history of ischemic heart disease and other diseases of the circulatory system
CPT/HCPCS: 36415; 80053; 80061; 82728; 83550; 85025

== ENCOUNTER → 2020-06-14 15:36 | Outpatient (CLI) | payer OTHER, MEDICAID, SELFPAY ==
[2020-06-15 09:45] LABS: Free T4, Direct Thyroxine 1.34 ng/dL (0.78-2.19)
[2020-06-15 11:34] LABS: Thyroid Stimulating Hormone 0.536 uIU/mL (0.47-4.68)
== END ==
PROVIDERS: PCP Registered Nurse; Referring Provider Obstetrics & Gynecology; Visit Provider Obstetrics & Gynecology
DX: N92.6 Irregular menstruation, unspecified (principal)
CPT/HCPCS: 36415; 83036; 84439; 84443

== ENCOUNTER → 2020-07-05 14:06 | Outpatient (CLI) | payer OTHER, MEDICAID, SELFPAY ==
[2020-07-11 03:36] LABS: Anti Mullerian Hormone 15.8 ng/mL (.)
== END ==
PROVIDERS: PCP Registered Nurse; Referring Provider Obstetrics & Gynecology; Visit Provider Obstetrics & Gynecology
DX: Z31.89 Encounter for other procreative management (principal); E28.2 Polycystic ovarian syndrome
CPT/HCPCS: 36415; 82397

== ENCOUNTER → 2020-08-09 11:47 | Outpatient (CLI) | payer OTHER, MEDICAID, SELFPAY ==
--- NOTE | 2020-08-09 11:48 | DI.RAD.S_ITS ---
PROCEDURE: XR LUMBAR SPINE MIN 4V INDICATIONS: lower back pain TECHNIQUE: 5 views of the lumbar spine were acquired. COMPARISON: [facility], , XR LUMBAR SPINE 2-3V, 05/09/2019, 17:03. FINDINGS: Bones: 5 nonrib-bearing vertebrae are present. There is normal bony alignment. No vertebral body compression fractures. No suspicious bony lesions. Mild degenerative disc height reduction at L5-S1 with anterior projecting osteophytes. Facet osteoarthritis is mild at L4-5 and moderate at L5-S1. Soft tissues: Overlying bowel gas pattern is normal. No suspicious soft tissue calcifications. Oblique images: No pars defects. IMPRESSION: No trauma seen, [id number] degenerative disc disease and facet osteoarthritis at the L4-5 and especially L5-S1 levels. No compression fracture found. Dictated by: Amrit Naylor M.D. on 08/09/2020 at 14:33 Approved by: Amrit Naylor M.D. on 08/09/2020 at 14:34
== END ==
PROVIDERS: PCP Registered Nurse; Referring Provider Registered Nurse; Visit Provider Registered Nurse
DX: M54.5 Low back pain (principal); M47.816 Spondylosis without myelopathy or radiculopathy, lumbar region; M47.817 Spondylosis without myelopathy or radiculopathy, lumbosacral region; M51.36 Other intervertebral disc degeneration, lumbar region; M51.37 Other intervertebral disc degeneration, lumbosacral region; G89.29 Other chronic pain
CPT/HCPCS: 72110

== ENCOUNTER 2020-11-26 01:02 | Emergency (ER) | payer OTHER, MEDICAID, SELFPAY ==
[2020-11-26 01:02] VITALS: BP 144/83; PULSE 84; RESP 16; TEMP 36.7; O2SAT 100; BMI 26.6
--- NOTE | 2020-11-26 01:12 | ED.GENADULT ---
HPI - General Adult General Chief complaint: Recheck/Abnormal Lab/Rx Stated complaint: WAS EXPOSED TO COWORKER WITH POSITIVE COVID Time Seen by Provider: 11/26/20 01:02 Source: patient Mode of arrival: Ambulatory Limitations: no limitations History of Present Illness HPI narrative: 35-year-old female smoker with history of asthma of her request for COVID test. About 1 hour ago she found out that she has been exposed to a person who is now tested positive and had been in close contact with his persons not only earlier today but also about a week ago. She does admit that she were not only a fabric mass but also and 95 and is completely asymptomatic. She denies runny nose, sore throat or cough. She denies any fever chills. She denies any change in her ability to smell or taste. She denies dysuria, frequency or urgency. Associated symptoms: denies other symptoms Related Data Previous Rx's Medication Instructions Recorded albuterol sulfate 2 puff INHALATION Q6H PRN #6.7 gram 04/09/20 fluticasone propionate [Flovent 1 puff INHALATION BID #12 gram 04/09/20 HFA] medroxyprogesterone 10 mg tablet 10 mg PO DAILY #30 tab 06/14/20 desogestrel 0.15 mg-ethinyl 1 tab PO DAILY #84 tab 07/05/20 estradiol 0.03 mg tablet celecoxib 200 mg capsule 200 mg PO DAILY #30 cap 10/09/20 cyclobenzaprine 10 mg tablet 10 mg PO BID PRN #60 tab 10/09/20 Allergies Allergy/AdvReac Type Severity Reaction Status Date / Time No Known Drug Allergies Allergy Verified 10/09/20 15:17 Review of Systems Review of Systems ROS Unobtainable: All systems reviewed & are unremarkable except as noted in HPI and below Constitutional Constitutional: Denies body ache(s), Denies chills and Denies fever(s) ENT Ears, Nose, Mouth, and Throat: Denies otalgia and Denies sore throat Cardiovascular Cardiovascular: Denies chest pain Respiratory Respiratory: Denies chest congestion, Denies cough and Denies wheezing Gastrointestinal Gastrointestinal: Denies abdominal pain, Denies diarrhea, Denies nausea and Denies vomiting Genitourinary Genitourinary: Denies dysuria Genitourinary: Denies dysuria Musculoskeletal Musculoskeletal: Denies arthralgias Integumentary/Breasts Skin/Breast: Denies rash Allergic/Immunologic Allergic/Immunologic: Denies wheezing Patient History Medical History Facet arthropathy, lumbar Herniated nucleus pulposus, lumbar Hx of sciatica Irregular menstrual cycle PTSD (post-traumatic stress disorder) RAD (reactive airway disease) Surgical History Anesthesia History of (~10/09/04) Family History Sister Ovarian cancer Mother Lung cancer Grandmother Lung cancer Social History marital status: unknown household members: family Smoking Status: Former smoker (quit 1 year ago.) substance use type: does not use Smoking Status: Former smoker (quit 1 year ago.) alcohol intake frequency: 0-2 drinks per day Alcohol type: beer Substance Use Type: does not use Exam Narrative Exam Narrative: GEN: AOx3 and in mild distress EYES: Pupils are equal, round, and reactive to light and accommodation. Extraoccular muscles are intact bilaterally. There is no subconjunctival hemorrhage or exudate. CHEST: Lungs are clear to auscultation bilaterally and free of wheezes, rales, or rhonchi. Heart rate is regular rhythm, there are no murmurs, clicks, rubs, or gallops. There is no chest wall tenderness. ABD: Abdomen is soft and nontender. There is no guarding or rebound. Bowel sounds are normal in all 4 quadrants. There is no mass or organomegaly. EXT: Full painless ROM of all extremities with no loss of sensation or strength. SKIN: Warm, pink, and dry. 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) Stat Vital Signs Vital signs: Vital Signs - 8 hr 11/26/20 01:02 Temperature 98.0 F Pulse Rate 84 Respiratory Rate 16 Blood Pressure 144/83 H Pulse Oximetry 100 Medical Decision Making Lab Data Labs: Lab Results 11/26/20 Range/Units 01:05 SARS-CoV-2 (PCR) Negative (Negative) Discharge Plan Departure Patient Disposition: Home Clinical Impression: Feared complaint without diagnosis, Close exposure to 2019 novel coronavirus Instructions: COVID-19 Viral Test Activity Restrictions/Additional Instructions: Given your lack of symptoms and exposure 1 week ago it is unlikely that your COVID will become positive, we will call you tonight with the result whether positive or negative. The following discharge instructions are those which she should follow if you are notified the ear swab was positive *You have been diagnosed with [ COVID-19] *What to do: * per recommendations from the CDC and the [facility] Department of Health * stay home except to get medical care. Restrict activities outside your home, except for getting medical care. Do not go to work, school, or public areas. Avoid using public transportation, ride sharing, or taxis. * separate yourself from other people in your home. * call ahead before visiting your doctor * Wear a facemask * Cover your coughs and sneezes * Clean your hands often * Avoid sharing household items * Clean all high-touch services every day * Monitor your symptoms and seek prompt medical attention if your illness is worsening, particularly with difficulty in breathing. You may discontinue your isolation when: 1. You have been fever-free for at least 24 hours without the use of fever reducing medication, AND 2. Your symptoms are getting better 3. At least 10 days have passed since symptoms first appeared Individuals with laboratory confirmed COVID-19 who have not had any symptoms may discontinue home isolation when at least 10 days have passed since the date of their first COVID-19 diagnostic test and have had no subsequent illness Prescriptions: No Action desogestrel-ethinyl estradiol [Isibloom] 0.15-0.03 mg tablet 1 tab PO DAILY Qty: 84 RF: 4 medroxyprogesterone 10 mg tablet 10 mg PO DAILY Qty: 30 RF: 2 Flovent HFA 110 mcg/actuation HFA aerosol inhaler 1 puff INHALATION BID Qty: 12 RF: 0 albuterol sulfate 90 mcg/actuation HFA aerosol inhaler 2 puff INHALATION Q6H PRN (Reason: shortness of breath or wheezing) Qty: 6.7 RF: 2 celecoxib [Celebrex] 200 mg capsule 200 mg PO DAILY Qty: 30 RF: 2 cyclobenzaprine 10 mg tablet 10 mg PO BID PRN (Reason: muscle spasm) Qty: 60 RF: 1 Referrals: Fish Lai ARNP [Primary Care Provider] -
[2020-11-26 02:19] LABS: COVID19 - ADMIT (NP swab/PCR) Negative (Negative)
== END 2020-11-26 01:14 | disposition home or self-care (01) ==
LOC: ED 01:14
PROVIDERS: Emergency Provider Emergency Medicine; PCP Registered Nurse
DX: Z20.822 Contact with and (suspected) exposure to COVID-19 (principal)
CPT/HCPCS: 87635; 99281; 99282; C9803

== ENCOUNTER → 2020-12-10 07:06 | Outpatient (CLI) | payer OTHER, MEDICAID, SELFPAY ==
[2020-12-10 14:34] LABS: COVID19 -Nasal RAPID Negative (Negative)
== END ==
PROVIDERS: PCP Registered Nurse; Visit Provider Physical Medicine & Rehabilitation
DX: Z20.822 Contact with and (suspected) exposure to COVID-19 (principal)
CPT/HCPCS: 87635; C9803

== ENCOUNTER 2020-12-12 12:46 | Outpatient (CLI) | payer OTHER, MEDICAID, SELFPAY ==
[2020-12-12] VITALS (8 sets, daily range): BP systolic 127–138; BP diastolic 71–91; PULSE 63–76; RESP 12–24; TEMP 36.6; O2SAT 98–100
--- NOTE | 2020-12-12 12:48 | DI.RAD.S_ITS ---
PROCEDURE: PAIN L INTERLAMINAR/CAUDAL INJ INDICATIONS: SPONDYLOSIS COMPARISON: None. FINDINGS: Fluoroscopic spot filming was performed to verify placement of spinal needles at the L5-S1 level(s), as labeled on the films. Appropriate location(s) of the needle tip(s) was confirmed by injection of iodinated contrast. Dictated by: Micah Beasley M.D. on 12/12/2020 at 15:29 Approved by: Micah Beasley M.D. on 12/12/2020 at 15:29
[2020-12-12] MEDS: fentaNYL 100 MCG/2 ML INJ 50 MCG IV (14:05)
[2020-12-12] MEDS: MIDAZOLAM 5 MG/5 ML VIAL IV (14:08)
[2020-12-12] MEDS: BUPIVACAINE 0.25% (PF) VIAL 2 ML INJ (14:08)
[2020-12-12] MEDS: IOPAMIDOL 15 ML VIAL 3 ML INJ (14:08)
[2020-12-12] MEDS: DEXAMETHASONE 10 MG/ML VIAL 20 MG INJ (14:09)
[2020-12-12] MEDS: BETAMETHASONE 30 MG/5 ML MDV 6 MG INJ (14:09)
--- NOTE | 2020-12-12 14:16 | PM.PROC.IR.1 ---
Date/Time/Diagnoses Date of procedure: 12/12/20 Time of procedure: 14:16 Pre-procedure diagnosis: 1. HNP WITH RADICULAR FEATURES, 2. MULTILEVEL CENTRAL STENOSIS, Post-procedure diagnosis: same Procedure Notes Procedure: 1. FLUOROSCOPICALLY GUIDED CONTRAST CONTROLLED INTERLAMINAR EPIDURAL STEROID INJECTION - L5/S1 Indications: Lori is referred by Erin MARIN for treatment of Bilateral Foraminal Stenosis L>R LE symptoms. Physician: Zander Babin Total Fluoroscopy time (seconds): 7 Total sedation minutes: 7 Complications: none Procedure in detail & Post-procedure care: FINDINGS Multilevel Central Spinal Stenosis with Nerve Root Compression DESCRIPTION OF PROCEDURE Fluoroscopically guided, contrast-controlled L5/S1 translaminar epidural steroid injection. Following review of allergy and review of potential side effects and complications, including, but not necessarily limited to, infection, allergic reaction, local tissue breakdown, temporary as well as permanent nerve injury, paralysis, stroke and possible , the patient indicated that the patient understood and agreed to proceed. An informed consent document was signed by the patient, witnessed by a nurse, and placed in the patient's chart. Additionally, other treatment options including modalities, medications, and physical therapy were reviewed with the patient. After review of previous anaesthesic history and IV conscious sedation the patient was deemed safe to proceed with today?s procedure with IV conscious sedation as ASA class II designation. Safety time-out was performed to confirm patient ID, procedure to be performed and site of procedure. IV sedation was accomplished with a combination of 3mg of Versed and 50mcg of Fentanyl administered by the RN after DO order, titrated to patient comfort during the course of the procedure while the patient remained responsive to all verbal commands. In the prone position, following sterile prep and drape of the lumbar region, the L5/S1 translaminar space was identified fluoroscopically. The skin was anesthetized via a 25-gauge, 1.5-inch needle with 1% lidocaine solution. At this point, a 22-gauge short bevel spinal needle was atraumatically introduced and advanced under fluoroscopic guidance into the region of the L5/S1 translaminar space. Depth was confirmed on lateral view. Radiological data, including multiple fluoroscopic views of the lumbar spine, reveal a spinal needle at the L5/S1 translaminar space. Lateral views then show placement of the needle in the epidural space. Subsequent views show contrast material flowing superiorly and inferiorly in the epidural space. No vascular or intrathecal uptake is observed. At this point, using loss of resistance technique with saline and air, the epidural space was entered. This was confirmed following negative aspiration with injection of approximately 1.5cc of Isovue 200, showing excellent epidural flow without vascular or intrathecal uptake. At this point, 1 cc of 1% lidocaine solution combined with 3cc or 20mg of dexamethasone and 6mg of betamethasone was injected without incident. The patent tolerated the procedure without signs of symptoms of complications prior to transfer to the recovery area for further monitoring. The patient was then transferred to the recovery area where they were observed for an appropriate period of time after the injection. The patient reported a VAS score of 6 prior to the procedure and a post-procedure VAS of 0. POST OP INSTRUCTIONS The patient was provided a Pain Log to continue to record their response to the target-specific procedure prior to follow-up visit with their referring physician. Additionally, specific post-injection care instructions and a contact number to our office were provided if concerns arise regarding possible complications associated with the procedure are suspected.
== END 2020-12-12 14:40 | disposition home or self-care (01) ==
LOC: RAD 12:47
PROVIDERS: PCP Registered Nurse; Referring Provider Physical Medicine & Rehabilitation; Visit Provider Physical Medicine & Rehabilitation
DX: M51.17 Intervertebral disc disorders with radiculopathy, lumbosacral region (principal); M48.07 Spinal stenosis, lumbosacral region
CPT/HCPCS: 62323; J0702; J1100; J2250; J3010

== ENCOUNTER 2021-02-26 14:27 | Emergency (ER) | payer OTHER, MEDICAID, SELFPAY ==
[2021-02-26 14:30] VITALS: BP 135/79; PULSE 70; RESP 20; TEMP 37.2; O2SAT 98
[2021-02-26 15:03] LABS: Add Manual Diff / Slide Review NO; Basophils Absolute Auto 100 /uL (0-100); Basophils Percent Auto 1.2 % (0-2); Eosinophils Absolute Auto 300 /uL (0-450); Eosinophils Percent Auto 2.9 % (2-4); Hematocrit 35.8 % (36-46); Hemoglobin 12.4 g/dL (12.0-16.0); Lymphocytes Absolute Auto 3300 /uL (1100-4500); Lymphocytes Percent Auto 34.5 % (25-40); Mean Corpuscular HGB Conc 34.6 % (30-36); Mean Corpuscular Hemoglobin 30.2 PG (26-34); Mean Corpuscular Volume 87.4 fL (80-100); Monocytes Absolute Auto 900 /uL (0-900); Neutrophils Absolute Auto 5000 /uL (1500-7000); Neutrophils Percent Auto 52.4 % (50-75); Platelet Count 320 X10^3/uL (150-400); Red Cell Distribution Width 12.9 % (11.6-14.8); White Blood Cell Count 9.5 X10^3/uL (4.5-11.0)
[2021-02-26 15:09] LABS: Alanine Aminotransferase 22 IU/L (<35); Albumin Globulin Ratio 1.3 (1.0-2.8); Alkaline Phosphatase 80 U/L (38-126); Aspartate Aminotransferase 40 IU/L (14-36); BUN Creatinine Ratio 15.3 (6-22); Bilirubin Total 0.3 mg/dL (0.2-1.3); Blood Urea Nitrogen 11 mg/dL (7-17); Calcium 9.2 mg/dL (8.4-10.2); Carbon Dioxide 21 mmol/L (22-32); Chloride 109 mmol/L (98-107); Estimated Glomerular Filt Rate > 60.0 mL/min (>60); Globulin 3.1 g/dL (1.7-4.1); Glucose 99 mg/dL (70-100); HEMOLYSIS 43 (0-50); Lipase 86 U/L (23-300); Sodium 137 mmol/L (137-145); Total Protein 7.1 g/dL (6.3-8.2)
--- NOTE | 2021-02-26 16:12 | ED_ITS ---
HPI - Abdominal Pain <Deni Soto PA-C - Last Filed: 02/27/21 18:55> General Chief Complaint: Abdominal Pain Stated Complaint: pain in right side since Wednesday/rash on arm Time Seen by Provider: 02/26/21 16:12 Source: patient Mode of arrival: Ambulatory History of Present Illness HPI narrative: Lori presents today with chief complaint right-sided upper abdominal pain that started 4 days ago. She reports that it was initially only occasional but now is more consistent. Pain is made worse with touching the right upper quadrant of her stomach. She denies any significant nausea, vomiting, postprandial pain, rash to that area, fever, constipation, diarrhea, urinary symptoms or any other acute concerns or complaints at this time. She has past surgical history of a Caesarean section. No other surgical history. Related Data Previous Rx's Medication Instructions Recorded albuterol sulfate 90 mcg/actuation 2 puff INHALATION Q6H PRN #6.7 gram 04/09/20 aerosol inhaler fluticasone propionate 110 1 puff INHALATION BID #12 gram 04/09/20 mcg/actuation HFA aerosol inhaler (Flovent HFA) medroxyprogesterone 10 mg tablet 10 mg PO DAILY #30 tab 06/14/20 desogestrel 0.15 mg-ethinyl 1 tab PO DAILY #84 tab 07/05/20 estradiol 0.03 mg tablet (Isibloom) cyclobenzaprine 10 mg tablet 10 mg PO BID PRN #60 tab 10/09/20 celecoxib 200 mg capsule (Celebrex) 200 mg PO DAILY #30 cap 02/14/21 Allergies Allergy/AdvReac Type Severity Reaction Status Date / Time No Known Drug Allergies Allergy Verified 02/14/21 09:29 Review of Systems <Deni Soto PA-C - Last Filed: 02/27/21 18:55> Review of Systems Narrative: As per HPI Patient History <Deni Soto PA-C - Last Filed: 02/27/21 18:55> Medical History Facet arthropathy, lumbar Herniated nucleus pulposus, lumbar Hx of sciatica Irregular menstrual cycle PTSD (post-traumatic stress disorder) RAD (reactive airway disease) Surgical History Anesthesia History of (~10/09/04) Family History Sister Ovarian cancer Mother Lung cancer Grandmother Lung cancer Social History marital status: unknown household members: family Smoking Status: Former smoker substance use type: does not use Smoking Status: Former smoker tobacco type: cigarettes alcohol intake frequency: 0-2 drinks per day Alcohol type: beer Substance Use Type: does not use Exam <Deni Soto PA-C - Last Filed: 02/27/21 18:55> Narrative Exam Narrative: Exam Narrative: Const General: cooperative, healthy appearing, comfortable, no acute distress, well developed and well groomed Nutritional Appearance: Elevated BMI Orientation: alert and oriented x3 HENMT Head: normal to inspection and atraumatic Ears: hearing grossly normal bilaterally Nose: external nose normal and nares normal Face and sinus: normal facial exam Neck Neck: normal visual inspection and supple Resp Effort & Inspection: normal respiratory effort, able to speak in complete sentences, clear to auscultation bilaterally with no wheezes, crackles. Cardiac Regular rate and rhythm, no discernible murmurs, rubs or gallops GI Mild tenderness in the right upper quadrant with positive Dickson sign. No tenderness at McBurney's point, no rebound tenderness, no masses noted. Normal bowel sounds. No CVA tenderness Skin No rashes or lesions noted. Neuro General: alert, oriented x3, gait normal, tone normal and moves all extremities Cognition: normal cognition Speech: speech normal Gait: normal gait Psych Appearance: grossly normal and well kempt Mental Status: mental status grossly normal Speech and Movement: speech and movement normal Mood: congruent mood Affect: normal affect Initial Vital Signs Initial Vital Signs: Vital Signs Temperature 99.0 F 02/26/21 14:30 Pulse Rate 70 02/26/21 14:30 Respiratory Rate 20 02/26/21 14:30 Blood Pressure 135/79 02/26/21 14:30 Pulse Oximetry 98 02/26/21 14:30 <Jess Saavedra DO - Last Filed: 03/02/21 02:54> Initial Vital Signs Initial Vital Signs: Vital Signs Temperature 99.0 F 02/26/21 14:30 Pulse Rate 70 02/26/21 14:30 Respiratory Rate 20 02/26/21 14:30 Blood Pressure 135/79 02/26/21 14:30 Pulse Oximetry 98 02/26/21 14:30 Course <Deni Soto PA-C - Last Filed: 02/27/21 18:55> Orders Ordered: ED Orders 02/26/21 14:34 EKG-12 Lead Stat 02/26/21 14:43 Complete Blood Count AUTO DIFF Stat Comprehensive Metabolic Panel Stat Lipase Stat 02/26/21 16:35 US abdomen limited Stat Vital Signs Vital signs: Vital Signs - 8 hr 02/26/21 14:30 Temperature 99.0 F Pulse Rate 70 Respiratory Rate 20 Blood Pressure 135/79 Pulse Oximetry 98 <Jess Saavedra DO - Last Filed: 03/02/21 02:54> Orders Ordered: ED Orders 02/26/21 14:34 EKG-12 Lead Stat 02/26/21 14:43 Complete Blood Count AUTO DIFF Stat Comprehensive Metabolic Panel Stat Lipase Stat 02/26/21 16:35 US abdomen limited Stat Vital Signs Vital signs: Vital Signs - 8 hr 02/26/21 14:30 Temperature 99.0 F Pulse Rate 70 Respiratory Rate 20 Blood Pressure 135/79 Pulse Oximetry 98 MDM - Abdominal Pain <Deni Soto PA-C - Last Filed: 02/27/21 18:55> Lab Data Result diagrams: 02/26/21 14:43 02/26/21 14:43 Labs: Lab Results 02/26/21 02/26/21 Range/Units 14:43 14:43 WBC 9.5 (4.5-11.0) X10^3/uL RBC 4.10 (4.0-5.2) X10^6/uL Hgb 12.4 (12.0-16.0) g/dL Hct 35.8 L (36-46) % MCV 87.4 (80-100) fL MCH 30.2 (26-34) PG MCHC 34.6 (30-36) % RDW 12.9 (11.6-14.8) % Plt Count 320 (150-400) X10^3/uL Neut % (Auto) 52.4 (50-75) % Lymph % (Auto) 34.5 (25-40) % [place] % (Auto) 9.0 (3-14) % Eos % (Auto) 2.9 (2-4) % Baso % (Auto) 1.2 (0-2) % Neut # (Auto) 5000 (9021-6009) /uL Lymph # (Auto) 3300 (4813-5234) /uL [place] # (Auto) 900 (0-900) /uL Eos # (Auto) 300 (0-450) /uL Baso # (Auto) 100 (0-100) /uL Sodium 137 (137-145) mmol/L Potassium 4.0 (3.4-5.1) mmol/L Chloride 109 H (98-107) mmol/L Carbon Dioxide 21 L (22-32) mmol/L BUN 11 (7-17) mg/dL Creatinine 0.72 (0.52-1.04) mg/dL Estimated GFR > 60.0 (>60) mL/min BUN/Creatinine Ratio 15.3 (6-22) Glucose 99 (70-100) mg/dL Calcium 9.2 (8.4-10.2) mg/dL Total Bilirubin 0.3 (0.2-1.3) mg/dL AST 40 H (14-36) IU/L ALT 22 (<35) IU/L Alkaline Phosphatase 80 (38-126) U/L Total Protein 7.1 (6.3-8.2) g/dL Albumin 4.0 (3.5-5.0) g/dL Globulin 3.1 (1.7-4.1) g/dL Albumin/Globulin Ratio 1.3 (1.0-2.8) Lipase 86 (23-300) U/L Point of care testing: Point of Care Testing Test Results Negative Urine Dip Bedside Urine Glucose Negative Bedside Urine Bilirubin - Negative Bedside Urine Ketone - Negative Urine Specific [place] 1.020 Bedside Urine Occult Blood - Negative Bedside Urine pH 6 Bedside Urine Protein - Negative Bedside Urine Urobilinogen - Negative Bedside Urine Nitrite - Negative Bedside Urine Leukocytes - Negative Esterase MDM Narrative Medical decision making narrative: Differential diagnosis includes shingles, acute pyelonephritis, atypical appendicitis, acute cholecystitis, cholangitis, bowel obstruction, right lower quadrant pneumonia. She is afebrile, has normal breath sounds bilaterally, only has mild upper abdominal tenderness on palpation. No skin changes, appears well at this time. Labs are reasuring for no significant infection. No significant elevation in lipase, liver enzymes, WBCs, etc. Ultrasound shows normal gallbladder with only a slightly dilated CBD. No hematuria or urinary symptoms and urine dip is normal. Radiology suggested possible MRCP given the dilated CBD but patient does not want to stay to get this done. I recommended that she follow-up with PCP for imaging and have low threshold to return to ED if symptoms worsen. Patient verbalizes understanding and agrees to plan and has no further concerns at this time. Thank you A [id number] system was used with the dictation of this note. Please disregard any spelling or grammatical errors. <Jess Saavedra, DO - Last Filed: 03/02/21 02:54> Lab Data Labs: Lab Results 02/26/21 02/26/21 Range/Units 14:43 14:43 WBC 9.5 (4.5-11.0) X10^3/uL RBC 4.10 (4.0-5.2) X10^6/uL Hgb 12.4 (12.0-16.0) g/dL Hct 35.8 L (36-46) % MCV 87.4 (80-100) fL MCH 30.2 (26-34) PG MCHC 34.6 (30-36) % RDW 12.9 (11.6-14.8) % Plt Count 320 (150-400) X10^3/uL Neut % (Auto) 52.4 (50-75) % Lymph % (Auto) 34.5 (25-40) % [place] % (Auto) 9.0 (3-14) % Eos % (Auto) 2.9 (2-4) % Baso % (Auto) 1.2 (0-2) % Neut # (Auto) 5000 (0449-0037) /uL Lymph # (Auto) 3300 (9157-9072) /uL [place] # (Auto) 900 (0-900) /uL Eos # (Auto) 300 (0-450) /uL Baso # (Auto) 100 (0-100) /uL Sodium 137 (137-145) mmol/L Potassium 4.0 (3.4-5.1) mmol/L Chloride 109 H (98-107) mmol/L Carbon Dioxide 21 L (22-32) mmol/L BUN 11 (7-17) mg/dL Creatinine 0.72 (0.52-1.04) mg/dL Estimated GFR > 60.0 (>60) mL/min BUN/Creatinine Ratio 15.3 (6-22) Glucose 99 (70-100) mg/dL Calcium 9.2 (8.4-10.2) mg/dL Total Bilirubin 0.3 (0.2-1.3) mg/dL AST 40 H (14-36) IU/L ALT 22 (<35) IU/L Alkaline Phosphatase 80 (38-126) U/L Total Protein 7.1 (6.3-8.2) g/dL Albumin 4.0 (3.5-5.0) g/dL Globulin 3.1 (1.7-4.1) g/dL Albumin/Globulin Ratio 1.3 (1.0-2.8) Lipase 86 (23-300) U/L Point of care testing: Point of Care Testing Test Results Negative Urine Dip Bedside Urine Glucose Negative Bedside Urine Bilirubin - Negative Bedside Urine Ketone - Negative Urine Specific [place] 1.020 Bedside Urine Occult Blood - Negative Bedside Urine pH 6 Bedside Urine Protein - Negative Bedside Urine Urobilinogen - Negative Bedside Urine Nitrite - Negative Bedside Urine Leukocytes - Negative Esterase Discharge Plan Departure Patient Disposition: Home Clinical Impression: Abdominal pain, acute, right upper quadrant, Gallbladder pain Activity Restrictions/Additional Instructions: It was nice to meet you this evening. Please follow-up with your doctor. Your evaluation today was reassuring but your common bile duct was slightly enlarged. Your symptoms are concerning for gallbladder problems so you likely need an MRCP. Do not hesitate return to the emergency department if you have any worsening symptoms, fever, skin discoloration, or any other acute concerns or complaints. Thank you Deni Soto PA-C Prescriptions: No Action desogestrel-ethinyl estradiol [Isibloom] 0.15-0.03 mg tablet 1 tab PO DAILY Qty: 84 RF: 4 medroxyprogesterone 10 mg tablet 10 mg PO DAILY Qty: 30 RF: 2 Flovent HFA 110 mcg/actuation HFA aerosol inhaler 1 puff INHALATION BID Qty: 12 RF: 0 albuterol sulfate 90 mcg/actuation HFA aerosol inhaler 2 puff INHALATION Q6H PRN (Reason: shortness of breath or wheezing) Qty: 6.7 RF: 2 cyclobenzaprine 10 mg tablet 10 mg PO BID PRN (Reason: muscle spasm) Qty: 60 RF: 1 celecoxib [Celebrex] 200 mg capsule 200 mg PO DAILY Qty: 30 RF: 2 Referrals: Fish Lai ARNP [Primary Care Provider] - <Jess Saavedra DO - Last Filed: 03/02/21 02:54> Cosign ED Attending Cosmirellaature Attestation: I was immediately available in the department for consultation. Documentation has been reviewed. Agree with plan.
--- NOTE | 2021-02-26 16:35 | DI.US.S_ITS ---
PROCEDURE: US ABDOMEN LIMITED INDICATIONS: RUQ abd pain, high suspicion for gallbladder TECHNIQUE: Real-time focused scanning was performed of the abdomen, with image documentation. COMPARISON: [facility], CT, CT ABDOMEN PELVIS W CON, 04/09/2020, 20:10. FINDINGS: The liver is normal in size and demonstrates no focal lesions. No findings of gallstones or sludge are seen. The gallbladder wall is not thickened, measuring 3 mm or less. No specific pericholecystic fluid is seen. The sonographic Dickson sign is negative. The common bile duct is mildly prominent at 8.4 mm. No significant pancreatic abnormality is seen on these images. IMPRESSION: Normal appearing gallbladder. Slight prominence of the common bile duct, measuring 8.4 mm. If clinically appropriate, an MRCP could be considered for further evaluation (assuming that there is no contraindication to MRI). Dictated by: Adam Roy M.D. on 02/26/2021 at 17:01 Approved by: Adam Roy M.D. on 02/26/2021 at 17:02
[2021-02-26 19:29] VITALS: BP 139/72; PULSE 68; RESP 16; TEMP 36.7; O2SAT 100
== END 2021-02-26 19:30 | disposition home or self-care (01) ==
PROVIDERS: Emergency Medicine; Emergency Provider Physician Assistant; PCP Registered Nurse
DX: R10.11 Right upper quadrant pain (principal); K82.9 Disease of gallbladder, unspecified
CPT/HCPCS: 76705; 80053; 81003; 81025; 83690; 85025; 93005; 99283; 99284

== ENCOUNTER → 2021-03-04 17:02 | Outpatient (CLI) | payer OTHER, MEDICAID, SELFPAY ==
--- NOTE | 2021-03-04 17:04 | DI.MRI.S_ITS ---
PROCEDURE: MR ABDOMEN WO CON INDICATIONS: gallbladder disease; abdominal pain TECHNIQUE: Coronal HASTE through the abdomen, axial 2-D FLASH in- and [id number], and breath-hold T2 FSE with fat saturation through the biliary system and pancreas. Oblique coronal and axial thin-slice HASTE, radial thick-slab HASTE centered on the extrahepatic bile ducts. COMPARISON: [facility], US, US ABDOMEN LIMITED, 02/26/2021, 16:22. [facility], CT, CT ABDOMEN PELVIS W CON, 04/09/2020, 20:10. FINDINGS: Image quality: Excellent. Pancreas and biliary system: No intrahepatic biliary ductal dilatation. The CBD measures 0.7 cm, (3/16). The CBD tapers distally. No convincing filling defects seen. Tiny focus of T2 dropout signal is felt to be due to bile flow. Gallbladder is decompressed. No gallstones seen. Pancreas is normal in morphology, without adjacent soft tissue edema. Pancreatic duct is normal in caliber, without developmental anomalies. Other solid organs: Liver is normal in size. Spleen is normal in size. No adrenal nodules. Both kidneys are normal in size, without hydronephrosis. Nodes and vessels: No retroperitoneal or mesenteric adenopathy by size criteria. Aorta and inferior vena cava are normal in size. Bowel and peritoneum: Unenhanced bowel loops are normal in caliber. No free fluid. Lung bases: No basal pleural effusions. Heart size is normal. Bones and soft tissues: No ventral hernias. Bone marrow is of normal overall signal. IMPRESSION: 1. Gallbladder is not distended. No gallstones seen. 2. No intrahepatic biliary ductal dilatation. CBD is at the upper limits of normal. 3. No pancreatic ductal dilatation. No free fluid. Dictated by: Clint Qureshi M.D. on 03/05/2021 at 8:43 Approved by: Clint Qureshi M.D. on 03/05/2021 at 8:49
== END ==
PROVIDERS: PCP Registered Nurse; Referring Provider Registered Nurse; Visit Provider Registered Nurse
DX: R10.11 Right upper quadrant pain (principal); K82.9 Disease of gallbladder, unspecified
CPT/HCPCS: 74181

== ENCOUNTER 2021-04-09 08:41 | Emergency (ER) | payer OTHER, MEDICAID, SELFPAY ==
[2021-04-09] VITALS (17 sets, daily range): BP systolic 126–161; BP diastolic 74–103; PULSE 50–72; RESP 16; TEMP 36.8; O2SAT 93–100; BMI 29.5
--- NOTE | 2021-04-09 08:49 | ED_ITS ---
HPI - General Adult General Chief complaint: Headache Stated complaint: Migraine x6 days Time Seen by Provider: 04/09/21 08:46 Source: patient Mode of arrival: Ambulatory History of Present Illness HPI narrative: Patient is a 35-year-old female who is here for evaluation of a headache. She states the headache started approximately 6 days ago. She was at work when the symptoms started. It was a gradual onset. Has been consistent for the past 6 days however there been times where it has hurt more than others. She states this started in the front of her head. It was sharp discomfort. No vision changes. No ringing in her ears. No sore throat. No sinus congestion. Yesterday was seen at the walk-in clinic and was given a shot of Toradol. She does describe pain in the back of her neck. No fevers. No numbness and tingling in upper lower extremities. Related Data Previous Rx's Medication Instructions Recorded desogestrel 0.15 mg-ethinyl 1 tab PO DAILY #84 tab 07/05/20 estradiol 0.03 mg tablet (Isibloom) cyclobenzaprine 10 mg tablet 10 mg PO BID PRN #60 tab 10/09/20 celecoxib 200 mg capsule (Celebrex) 200 mg PO DAILY #30 cap 02/14/21 slrmcitfwb-wqrxyvotqinjg-tdejttdc 1 cap PO Q4-6H PRN #14 cap 04/09/21 50 mg-300 mg-40 mg capsule (Fioricet) Allergies Allergy/AdvReac Type Severity Reaction Status Date / Time No Known Drug Allergies Allergy Verified 04/08/21 12:55 Review of Systems Constitutional Constitutional: Denies fever(s) and Reports headache(s) Eyes Eyes: Reports as per HPI and Reports system reviewed and no additional complaints, except as documented ENT Ears, Nose, Mouth, and Throat: Reports system reviewed and no additional complaints, except as documented, Denies vertigo, Denies dizziness, Reports head ache(s) and Reports disequilibrium Cardiovascular Cardiovascular: Reports system reviewed and no additional complaints, except as documented Respiratory Respiratory: Reports system reviewed and no additional complaints, except as documented Gastrointestinal Gastrointestinal: Reports system reviewed and no additional complaints, except as documented Musculoskeletal Musculoskeletal: Reports system reviewed and no additional complaints, except as documented, Reports as per HPI, Denies numbness and Denies tingling Integumentary/Breasts Skin/Breast: Reports system reviewed and no additional complaints, except as documented Neurologic Neurologic: Denies confusion, Denies vertigo, Denies dizziness, Reports headache(s), Denies numbness, Denies tingling and Reports disequilibrium Psychiatric Psychiatric: Denies confusion Hematologic/Lymphatic On Anticoagulants: No Allergic/Immunologic Allergic/Immunologic: Reports system reviewed and no additional complaints, except as documented Patient History Medical History Facet arthropathy, lumbar Herniated nucleus pulposus, lumbar Hx of sciatica Irregular menstrual cycle PTSD (post-traumatic stress disorder) RAD (reactive airway disease) Surgical History Anesthesia History of (~10/09/04) Family History Sister Ovarian cancer Mother Lung cancer Grandmother Lung cancer Social History marital status: unknown household members: family Smoking Status: Former smoker substance use type: does not use Smoking Status: Former smoker tobacco type: cigarettes alcohol intake frequency: 0-2 drinks per day Alcohol type: beer Substance Use Type: does not use Exam Initial Vital Signs Initial Vital Signs: Vital Signs Temperature 98.3 F 04/09/21 08:45 Pulse Rate 72 04/09/21 08:45 Respiratory Rate 16 04/09/21 08:45 Blood Pressure 161/103 H 04/09/21 08:45 Pulse Oximetry 100 04/09/21 08:45 Const General: cooperative, healthy appearing, comfortable, well developed and well groomed [facility] Head: normal to inspection and normocephalic Ears: TM's normal bilaterally Nose: external nose normal Face and sinus: normal facial exam Eyes General: appearance normal, both eyes and all related structures Periorbital: periorbital findings normal Pupils: PERRL EOM: EOM intact bilaterally Chest Chest: normal inspection of the chest Resp Effort & Inspection: normal respiratory effort Auscultation: clear to auscultation bilaterally Cardio Rate: regular rate Rhythm: regular rhythm GI Inspection: normal to inspection Skin General: no rashes or lesions noted Neuro General: patient alert, patient awake, patient oriented x3, tone normal and moves all extremities Cranial Nerves: CN's II-XI intact bilaterally Speech: speech normal Gait: normal gait Motor: muscle tone normal throughout Extrem General: normal to inspection and capillary refill normal Psych Appearance: grossly normal and well kempt Scores GCS [place] coma scale eye opening: Spontaneous [place] coma scale verbal response: Orientated [place] coma scale motor response: Obey commands [place] coma scale total score: 15 Course Orders Ordered: ED Orders 04/09/21 09:44 COVID19 -Nasal swab/Pre-Proc Stat Discontinued Medications Acetaminophen (Acetaminophen 325 Mg Tablet) 650 mg PO NOW ONE Stop: 04/09/21 10:53 Last Admin: 04/09/21 11:19 Dose: 650 mg Documented by: CHAI Diphenhydramine HCl (Diphenhydramine 50 Mg/Ml Vial) 25 mg IV NOW ONE Stop: 04/09/21 08:56 Last Admin: 04/09/21 09:17 Dose: 25 mg Documented by: CHAI Sodium Chloride (Normal Saline 0.9%) 1,000 mls @ 1,000 mls/hr IV BOLUS ONE Stop: 04/09/21 09:54 Last Infusion: 04/09/21 10:14 Dose: 0 mls/hr Documented by: Admin: 04/09/21 09:11 Dose: 1,000 mls/hr Documented by: CHAI Ketorolac Tromethamine (Ketorolac 30 Mg/Ml Vial) 30 mg IV NOW ONE Stop: 04/09/21 10:53 Last Admin: 04/09/21 11:19 Dose: 30 mg Documented by: CHAI Methylprednisolone (Methylprednisolone 125 Mg/2 Ml Vial) 125 mg IV NOW ONE Stop: 04/09/21 10:53 Last Admin: 04/09/21 11:19 Dose: 125 mg Documented by: CHAI Metoclopramide HCl (Metoclopramide 10 Mg/2 Ml Inj) 10 mg IV NOW ONE Stop: 04/09/21 08:56 Last Admin: 04/09/21 09:35 Dose: 10 mg Documented by: CHAI Vital Signs Vital signs: Vital Signs - 8 hr 04/09/21 08:45 04/09/21 08:50 04/09/21 09:00 Temperature 98.3 F Pulse Rate 72 69 70 Respiratory Rate 16 Blood Pressure 161/103 H 142/88 H Pulse Oximetry 100 99 99 04/09/21 09:11 04/09/21 09:17 04/09/21 09:18 Temperature Pulse Rate 64 58 L 56 L Respiratory Rate Blood Pressure 142/87 H 145/84 H 141/80 H Pulse Oximetry 98 99 99 04/09/21 09:19 04/09/21 09:20 04/09/21 09:21 Temperature Pulse Rate 56 L 59 L 58 L Respiratory Rate Blood Pressure 131/80 137/82 140/83 Pulse Oximetry 98 98 99 04/09/21 09:30 04/09/21 09:45 04/09/21 11:25 Temperature Pulse Rate 50 L 55 L 56 L Respiratory Rate Blood Pressure 136/88 134/85 Pulse Oximetry 98 99 93 04/09/21 11:26 04/09/21 11:30 04/09/21 11:45 Temperature Pulse Rate 56 L 53 L 54 L Respiratory Rate Blood Pressure 137/77 128/83 Pulse Oximetry 99 99 99 04/09/21 12:00 04/09/21 12:15 Temperature Pulse Rate 50 L 50 L Respiratory Rate Blood Pressure 126/76 132/74 Pulse Oximetry 99 99 Medical Decision Making Lab Data Labs: Lab Results 04/09/21 Range/Units 09:44 SARS-CoV-2 (PCR) Negative (Negative) MDM Narrative Medical decision making narrative: Patient does report improvement of symptoms from a 7 -8/10 to a 2 -3/10 with regard to her headache. No fevers low suspicion for meningitis. Low suspicion for subarachnoid hemorrhage. Diagnosed with migraines. No indication for emergent head CT today. Was sent home with medication to try to help with her symptoms. She was informed that she needed to contact her primary doctor as she may need a referral to see headache specialist. She expressed understanding and agreement. Discharge Plan Departure Patient Disposition: Home Clinical Impression: Headache Instructions: DI for Headache Activity Restrictions/Additional Instructions: Recommend that you continue to take all of your medications as directed. If your headache continues to do need to see your primary doctor. You may need referral to get in to see a headache specialist. Return to the emergency department for any worsening symptoms Prescriptions: New usfkqggbjt-mhlqxpwmguhwp-ivlh [Fioricet] 50-300-40 mg capsule 1 cap PO Q4-6H PRN (Reason: pain) Qty: 14 RF: 0 No Action desogestrel-ethinyl estradiol [Isibloom] 0.15-0.03 mg tablet 1 tab PO DAILY Qty: 84 RF: 4 cyclobenzaprine 10 mg tablet 10 mg PO BID PRN (Reason: muscle spasm) Qty: 60 RF: 1 celecoxib [Celebrex] 200 mg capsule 200 mg PO DAILY Qty: 30 RF: 2 Referrals: Fish Lai ARNP [Primary Care Provider] -
[2021-04-09] MEDS: SODIUM CHLORIDE 0.9% 1,000 ML 1000 ML IV (09:11)
[2021-04-09] MEDS: diphenhydrAMINE 50 MG/ML VIAL 25 MG IV (09:17)
[2021-04-09] MEDS: METOCLOPRAMIDE 10 MG/2 ML INJ IV (09:35)
[2021-04-09 10:15] LABS: COVID19 -Nasal RAPID Negative (Negative)
[2021-04-09] MEDS: KETOROLAC 30 MG/ML VIAL IV (11:19)
[2021-04-09] MEDS: ACETAMINOPHEN 325 MG TABLET 650 MG PO (11:19)
[2021-04-09] MEDS: methylPREDNISolone 125 MG/2 ML VIAL IV (11:19)
== END 2021-04-09 12:35 | disposition home or self-care (01) ==
PROVIDERS: Emergency Provider Emergency Medicine; PCP Registered Nurse
DX: R51.9 Headache, unspecified (principal); Z20.822 Contact with and (suspected) exposure to COVID-19
CPT/HCPCS: 36415; 87635; 96361; 96374; 96375; 99284; C9803; J1200; J1885; J2765; J2930

== ENCOUNTER → 2021-04-18 07:57 | Outpatient (CLI) | payer OTHER, MEDICAID, SELFPAY ==
--- NOTE | 2021-04-18 07:58 | DI.NM.S_ITS ---
PROCEDURE: NM HIDA WITH CCK PHARMACEUTICAL: 5.4 mCi Tc-99m mebrofenin IV; 8 oz Ensure Plus by mouth. INDICATIONS: abdominal pain TECHNIQUE: Following intravenous administration of Tc-99m mebrofenin, sequential anterior abdominal images were obtained. To evaluate the contractile response of the gallbladder in response to fatty meal, 8 0z Ensure Plus was given by mouth (as substitute for CCK) approximately 60 minutes after the administration of the radiopharmaceutical. Sequential imaging was continued for additional 30-60 minutes. Gallbladder ejection fraction was calculated. COMPARISON: None. FINDINGS: Biliary scan: There is normal tracer uptake and excretion by the liver. There is normal visualization of the intrahepatic ducts, common bile duct, and gallbladder. There is normal tracer transit into the duodenum. CCK stimulation: There is normal contractile response of the gallbladder to fatty meal. The calculated gallbladder ejection fraction is 72%; normal values are above 33%. IMPRESSION: 1. Normal filling of gallbladder. No evidence for acute cholecystitis. 2. Normal contractile response of gallbladder to CCK stimulation. Dictated by: Brendan Leiva M.D. on 04/18/2021 at 10:37 Approved by: Brendan Leiva M.D. on 04/18/2021 at 10:39
== END ==
PROVIDERS: PCP Registered Nurse; Referring Provider Surgery; Visit Provider Surgery
DX: R10.9 Unspecified abdominal pain (principal)
CPT/HCPCS: 78226; A9537

== ENCOUNTER → 2021-10-07 10:34 | Outpatient (CLI) | payer OTHER, MEDICAID, SELFPAY ==
[2021-10-07 12:08] LABS: COVID19 -Nasal RAPID Negative (Negative)
== END ==
PROVIDERS: PCP Registered Nurse; Visit Provider Physical Medicine & Rehabilitation
DX: Z20.822 Contact with and (suspected) exposure to COVID-19 (principal)
CPT/HCPCS: 87635; C9803

== ENCOUNTER 2021-10-09 07:26 | Outpatient (CLI) | payer OTHER, MEDICAID, SELFPAY ==
[2021-10-09] VITALS (11 sets, daily range): BP systolic 96–135; BP diastolic 53–83; PULSE 52–77; RESP 14–22; TEMP 36.7; O2SAT 95–98
--- NOTE | 2021-10-09 07:30 | DI.RAD.S_ITS ---
PROCEDURE: PAIN L/SI FACET INJ/BLK 1STL INDICATIONS: Spondylosis COMPARISON: None. FINDINGS: Fluoroscopic spot filming was performed to verify placement of spinal needles at the L4-5 and L5-S1 level(s), as labeled on the films. Appropriate location(s) of the needle tip(s) was confirmed by injection of iodinated contrast. IMPRESSION: Fluoro guidance was provided intraoperatively for right L4-5 and L5-S1 facet joint injections performed by the ordering physician. Dictated by: Dalton John M.D. on 10/09/2021 at 9:21 Approved by: Dalton John M.D. on 10/09/2021 at 9:23
[2021-10-09] MEDS: IOPAMIDOL 15 ML VIAL INJ (08:27)
[2021-10-09] MEDS: BETAMETHASONE 30 MG/5 ML MDV (08:28)
[2021-10-09] MEDS: BUPIVACAINE 0.5% (PF) VIAL 30 ML (08:28)
[2021-10-09] MEDS: fentaNYL 250 MCG/5 ML INJ (08:28)
[2021-10-09] MEDS: MIDAZOLAM 2 MG/2 ML VIAL (08:29)
--- NOTE | 2021-10-09 08:30 | P.PCN_ITS ---
Date/Time/Diagnoses Date of procedure: 10/09/21 Time of procedure: 08:30 Pre-procedure diagnosis: 1. FACET ARTHROPATHY, 2. AXIAL LBP, 3. MULTILEVEL DDD Post-procedure diagnosis: same Procedure Notes Procedure: 1. FLUOROSCOPICALLY GUIDED CONTRAST CONTROLLED FACET JOINT INJECTIONS RIGHT L4/5, L5/S1 Indications: Lori is referred by TOMAS Lai for treatment of Axial LBP Physician: Zander Babin Total Fluoroscopy time (seconds): 7 Total sedation minutes: 10 Complications: none Procedure in detail & Post-procedure care: FINDINGS Multilevel Facet Arthropathy with Clinically significant axial LBP DESCRIPTION OF PROCEDURE Fluoroscopically guided, contrast-controlled right L4/5, L5/S1 facet joint injections. Following review of allergy and review of potential side effects and complications, including, but not necessarily limited to, infection, allergic reaction, local tissue breakdown, stroke, temporary or permanent nerve injury, paralysis, and possible , the patient indicated that the patient understood and agreed to proceed. An informed consent document was signed by the patient, witnessed by a nurse, and placed in the patient's chart. Additionally, other treatment options including medications, modalities, and physical therapy were reviewed with the patient. After review of previous anaesthesic history and IV conscious sedation the patient was deemed safe to proceed with today?s procedure with IV conscious sedation as ASA class II designation. Safety time-out was performed to confirm patient ID, procedure to be performed and site of procedure. IV sedation was accomplished with a combination of 2mg of Versed and 100mcg of Fentanyl was administered by the RN after DO order, titrated to patient comfort during the course of the procedure while the patient remained responsive to all verbal commands. In the prone position, following sterile prep and drape of the lumbar region, the posterior aspect of the right L4/5, L5/S1 facet joints were identified fluoroscopically. The skin was anesthetized via a 25-gauge 1.5-inch needle with 1% lidocaine solution into the corresponding facet joints. At this point, a 22- gauge 3.5-inch spinal needle was atraumatically introduced and advanced under fluoroscopic guidance into the corresponding facet joints. Following negative aspiration, injections of approximately 0.2-cc of Isovue 200 confirmed interarticular placement without vascular uptake. Radiological data, including multiple fluoroscopic views of the lumbosacral spine, reveal a spinal needle at the right L4/5, L5/S1 facet joints. Subsequent views show flow of contrast material both superiorly and inferiorly within the joint space without vascular or intrathecal uptake. At this point, a total of 0.5cc including a mixture of 0.25cc Marcaine and 0.25cc betamethasone was injected without complication into each of the corresponding facet joints. The procedure tolerated the procedure well without signs or symptoms of complications prior to transfer to the recovery area continued monitoring without incident. The patient was then transferred to the recovery area where they were observed for an appropriate period of time after the injection. The patient reported a VAS score of 7 prior to the procedure and a post-procedure VAS of 0. POST OP INSTRUCTIONS The patient was provided a Pain Log to continue to record their response to the target-specific procedure prior to follow-up visit with their referring physician. Additionally, specific post-injection care instructions and a contact number to our office were provided if concerns arise regarding possible complications associated with the procedure are suspected.
[2021-10-09] MEDS: ONDANSETRON 4 MG/2 ML INJ IV (08:35)
--- NOTE | 2021-10-09 08:47 | PC.NURSE ---
Patient arrived from procedure room in [facility]. S. Approximately 2 minutes following reports of nausea. Dr. Babin at chair side made aware. Verbal order for zofran received and carried out. Patient with mild improvement at this time.
== END 2021-10-09 09:20 | disposition home or self-care (01) ==
LOC: RAD 07:28
PROVIDERS: PCP Registered Nurse; Referring Provider Physical Medicine & Rehabilitation; Visit Provider Physical Medicine & Rehabilitation
DX: M47.816 Spondylosis without myelopathy or radiculopathy, lumbar region (principal); M47.817 Spondylosis without myelopathy or radiculopathy, lumbosacral region; M51.36 Other intervertebral disc degeneration, lumbar region; M51.37 Other intervertebral disc degeneration, lumbosacral region
CPT/HCPCS: 64493; 64494; 99152; J0702; J1100; J2250; J3010

== ENCOUNTER → 2022-03-02 12:59 | Outpatient (CLI) | payer OTHER, MEDICAID, SELFPAY ==
[2022-03-02 14:00] LABS: COVID19 -Nasal RAPID Negative (Negative)
== END ==
PROVIDERS: PCP Registered Nurse; Visit Provider Physical Medicine & Rehabilitation
DX: Z20.822 Contact with and (suspected) exposure to COVID-19 (principal)
CPT/HCPCS: 87635; C9803

== ENCOUNTER 2022-03-03 13:53 | Outpatient (CLI) | payer OTHER, MEDICAID, SELFPAY ==
[2022-03-03] VITALS (9 sets, daily range): BP systolic 121–130; BP diastolic 77–88; PULSE 48–72; RESP 11–21; TEMP 36.3; O2SAT 98–100
--- NOTE | 2022-03-03 13:55 | DI.RAD.S_ITS ---
PROCEDURE: PAIN L/SI FACET INJ/BLK 1STL INDICATIONS: SPONDYLOSIS COMPARISON: [facility], , PAIN L/SI FACET INJ/BLK 1STL, 10/09/2021, 8:23. FINDINGS: Fluoroscopic spot filming was performed to verify placement of spinal needles on the right at the L4, L5 and S1 levels, as labeled on the films. Appropriate location of the needle tips was confirmed by injection of iodinated contrast. IMPRESSION: Intraprocedural examination demonstrating appropriate positions of the needles. Dictated by: Aadm Roy M.D. on 03/03/2022 at 14:20 Approved by: Adam Roy M.D. on 03/03/2022 at 14:21
--- NOTE | 2022-03-03 14:41 | PM.PROC.IR.1 ---
Date/Time/Diagnoses Date of procedure: 03/03/22 Time of procedure: 15:12 Pre-procedure diagnosis: 1. FACET ARTHROPATHY Post-procedure diagnosis: same Procedure Notes Procedure: 1. Right L4, L5 and S1 MB BLOCKS LA Indications: Lori is referred by TOMAS Lai for treatment of Right Axial LBP. Physician: Zander Babin Total Fluoroscopy time (seconds): 6 Total sedation minutes: 12 Complications: none Procedure in detail & Post-procedure care: DESCRIPTION OF PROCEDURE Fluoroscopically guided, contrast-controlled right L4, L5 and S1 medial branch blocks with 0.5cc of 0.5% Marcaine. Following review of allergy and review of potential side effects and complications, including, but not necessarily limited to, infection, allergic reaction, local tissue breakdown, nerve injury, paralysis, stroke and possible , the patient indicated that the patient understood and agreed to proceed. An informed consent document was signed by the patient, witnessed by a nurse, and placed in the patient's chart. After review of previous anaesthesic history and IV conscious sedation the patient was deemed safe to proceed with today?s procedure with IV conscious sedation as ASA class II designation. Safety time-out was performed to confirm patient ID, procedure to be performed and site of procedure. IV sedation was accomplished with a combination of 2mg of Versed was administered by the RN after DO order, titrated to patient comfort during the course of the procedure while the patient remained responsive to all verbal commands In the prone position, following sterile prep and drape of the lumbar region, the right L4, L5 and S1 anatomical location of the medial branch of the dorsal ramus was identified fluoroscopically. Subsequently an anesthetic skin wheal using 1% lidocaine solution was initiated at each of the anatomical spots. Subsequently then a 22-gauge 3.5-inch spinal needle was atraumatically introduced and advanced under fluoroscopic guidance at each of the corresponding sites at the right L4, L5 and S1 MB. After negative aspiration, 0.2 cc of Isovue 200 was injected, confirming placement without vascular or intrathecal uptake. Subsequently then 0.5 cc of 0.5% Marcaine solution was injected at each of the corresponding sites at the right L4, L5 and S1 medial branch locations. The patient tolerated the procedure well without signs or symptoms of complications. The procedure tolerated the procedure well without signs or symptoms of complications prior to transfer to the recovery area continued monitoring without incident. Post-procedure, the patient was monitored initiating provocative activities to measure the amount of relief from block of the facetogenic pain. The patient reported a VAS of 7 prior to the procedure and a post-procedure VAS of 1. It has been a pleasure to assist in the diagnostic and therapeutic care of your patient. POST OP INSTRUCTIONS The patient was provided with a Pain Log to complete over the next several hours and subsequent days prior to the patient's follow up with the ordering physician. If the patient has chip tester relief to the solution applied, then they may be a candidate for medial branch rhizotomy. The patient is aware, was provided, once again, with a Pain Log and will follow up with the referring physician for review and clinical correlation.
[2022-03-03] MEDS: MIDAZOLAM 2 MG/2 ML VIAL IV (14:54)
[2022-03-03] MEDS: IOPAMIDOL 15 ML VIAL 3 ML INJ (14:59)
[2022-03-03] MEDS: BUPIVACAINE 0.5% (PF) VIAL 2 ML INJ (14:59)
== END 2022-03-03 15:35 | disposition home or self-care (01) ==
PROVIDERS: PCP Registered Nurse; Referring Provider Physical Medicine & Rehabilitation; Visit Provider Physical Medicine & Rehabilitation
DX: M47.816 Spondylosis without myelopathy or radiculopathy, lumbar region (principal); M47.817 Spondylosis without myelopathy or radiculopathy, lumbosacral region
CPT/HCPCS: 64493; 64494; 99152; J2250